=== PATIENT | female | born 1995 | race Caucasian/White ===

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

== ENCOUNTER 2017-01-09 20:12 | Emergency (ER) | payer MEDICAID ==
[2017-01-09] MEDS ORDERED: Rocephin 1000 MG INJ IM ONE (21:21)
[2017-01-09] MEDS ORDERED: CLEOCIN 150 MG CAPSULE PO ONE ×2 (21:21→21:47)
[2017-01-09] MEDS ORDERED: CLEOCIN 150 MG CAPSULE ONE (21:29)
[2017-01-09] MEDS ORDERED: XYLOCAINE 1% HCL 20 ML MDV ONE (21:30)
[2017-01-09] MEDS ORDERED: Rocephin 1000 MG INJ ONE (21:30)
--- NOTE | 2017-01-09 21:37 | ERPHSYRPT ---
- History of Present Illness Time Seen by Provider: 01/09/17 21:15 Source: patient Exam Limitations: no limitations Patient Subjective Stated Complaint: pt states she has a hx of mrsa and thinks she has mrsa on her buttocks. Triage Nursing Assessment: pt alert and oreinted, answers questions approp. pt ambulatory with steady gait noted. respirations nonlabored with lungs cta. red area noted to lt buttock with some warmth noted. Physician History: FOR THE PAST 2 DAYS PT HAS HAD AN ERYTHEMATOUS AREA ON HER LEFT BUTTOCK; DENIES FEVER, CHILLS, NAUSEA, VOMITING. Allergies/Adverse Reactions: Penicillins Allergy (Mild, Verified 01/09/17 21:30) MOTHER ET FATHER ARE BOTH ALLERGIC SO WILL NOT TRY WITH CHILD Home Medications: No Home Meds 1 ea UD 01/09/17 [History] Hx Tetanus, Diphtheria Vaccination/Date Given: Yes Hx Influenza Vaccination/Date Given: No Hx Pneumococcal Vaccination/Date Given: No Immunizations Up to Date: Yes - Review of Systems Constitutional: No Fever, No Chills Abdominal/Gastrointestinal: No Nausea, No Vomiting Skin: Other (LEFT BUTTOCK ERYTHEMA) All Other Systems: Reviewed and Negative - Past Medical History Pertinent Past Medical History: No Neurological History: No Pertinent History ENT History: No Pertinent History Cardiac History: No Pertinent History Respiratory History: No Pertinent History Endocrine Medical History: No Pertinent History Musculoskeletal History: No Pertinent History GI Medical History: No Pertinent History History: No Pertinent History Psycho-Social History: No Pertinent History Female Reproductive Disorders: No Pertinent History Other Medical History: MRSA. No hx of DM - Past Surgical History Past Surgical History: No Neuro Surgical History: No Pertinent History Cardiac: No Pertinent History Respiratory: No Pertinent History Gastrointestinal: No Pertinent History Genitourinary: No Pertinent History Musculoskeletal: No Pertinent History Female Surgical History: No Pertinent History Other Surgical History: Arm Fracture - Social History Smoking Status: Never smoker Exposure to second hand smoke: No Alcohol Use: None Drug Use: none Patient Lives Alone: No Significant Family History: no pertinent family hx - Female History Hx Last Menstrual Period: last month Hx Now: No - Nursing Vital Signs Nursing Vital Signs: Initial Vital Signs Temperature 97.8 F Temperature Source Oral Pulse Rate 76 Respiratory Rate 18 Blood Pressure [Right Arm] 134/86 Pain Intensity 2 - Physical Exam General Appearance: alert Eye Exam: PERRL/EOMI Ears, Nose, Throat Exam: pharynx normal, moist mucous membranes, TM abnormal (L ) (LEFT TM ERYTHEMATOUS) Neck Exam: normal inspection Respiratory Exam: lungs clear Cardiovascular Exam: normal heart sounds Gastrointestinal/Abdomen Exam: soft, normal bowel sounds Back Exam: normal range of motion Extremity Exam: normal inspection, No pedal edema Neurologic Exam: alert, cooperative Skin Exam: other (1.5 CM ERYTHEMATOUS MILDLY TENDER NODULE WITHOUT FLUCTUATION ON THE LATERAL ASPECT OF THE LEFT BUTTOCK.) SpO2 Interpretation: normal SpO2: 97 Oxygen Delivery: Room Air - Course Nursing assessment & vital signs reviewed: Yes Ordered Tests: Medication Summary Discontinued Medications Generic Name Dose Route Start Last Admin Trade Name Freq PRN Reason Stop Dose Admin Ceftriaxone Sodium 1,000 mg 01/09/17 21:21 01/09/17 21:31 Rocephin 1000 Mg Inj IM 01/09/17 21:22 1,000 mg STAT ONE Administration Ceftriaxone Sodium Confirm 01/09/17 21:30 Rocephin 1000 Mg Inj Administered 01/09/17 21:31 Dose 1,000 mg .ROUTE .STK-MED ONE Clindamycin HCl 300 mg 01/09/17 21:21 01/09/17 21:31 Cleocin 150 Mg Capsule PO 01/09/17 21:22 300 mg STAT ONE Administration Clindamycin HCl Confirm 01/09/17 21:29 Cleocin 150 Mg Capsule Administered 01/09/17 21:30 Dose 300 mg .ROUTE .STK-MED ONE Lidocaine HCl Confirm 01/09/17 21:30 Xylocaine 1% Hcl 20 Ml Mdv Administered 01/09/17 21:31 Dose 3 ml .ROUTE .STK-MED ONE - Departure Time of Disposition: 21:46 Departure Disposition: Home Clinical Impression: CELLULITIS OF LEFT BUTTOCK, LOM Condition: Fair Critical Care Time: No Instructions: Methicillin-Resistant Staph Infection (MRSA) Additional Instructions: FOLLOW UP WITH PRIVATE DOCTOR TOMORROW. Prescriptions: Naproxen [Naprosyn] 500 mg PO Q12H PRN PRN #20 tablet PRN Reason: Pain Clindamycin HCl 300 mg PO Q6H #40 capsule
[2017-01-09 22:22] VITALS: BP 118/60; PULSE 70; O2SAT 100
== END 2017-01-09 22:22 | disposition home or self-care (01) ==
LOC: ED 20:12
DX: L03.317 Cellulitis of buttock (principal); H66.92 Otitis media, unspecified, left ear
CPT/HCPCS: 96372; 99284; J0696; A9270-GY

== ENCOUNTER 2017-02-24 14:31 | Emergency (ER) | payer MEDICAID ==
[2017-02-24 14:36] VITALS: BP 122/66; PULSE 89; O2SAT 98
--- NOTE | 2017-02-24 15:25 | ERPHSYRPT ---
- History of Present Illness Time Seen by Provider: 02/24/17 15:18 Source: patient Exam Limitations: no limitations Patient Subjective Stated Complaint: PT REPORTS PAIN TO RIGHT FOOT FOR A FEW WEEKS-STATES THAT SHE HAS TWISTED HER FOOT A FEW TIMES-STATES THAT SHE HAS INTERMITTANTLY WORE A BRACE FOR SUPPORT-PAIN INCREASES AT TIMES-REPORTS AT THE BEGINNING OF NOVEMBER OR DECEMBER SHE ALSO FELL ON HER ANKLE Triage Nursing Assessment: PT PINK WARM ET [id number] EASY ET NONLABORED-NO OBVIOUS DEFORMITY TO EXTREMITY-EXTREMITY PINK WARM ET DRY-PULSES PRESENT Physician History: The patient is a 21-year-old female with her boyfriend complaining that she slipped on the wet grass while playing [employer] 2 weeks ago, twisting her right foot, causing pain. She wrapped it for several days until the pain went away. She unwrapped it and now it's painful again. She took 200 mg of ibuprofen yesterday without relief. Method of Injury: twisted Occurred: other (2 weeks) Quality: constant, aching Severity of Pain-Max: moderate Severity of Pain-Current: moderate Lower Extremities Pain: foot: right Modifying Factors: Improves With: rest Associated Symptoms: none Allergies/Adverse Reactions: Penicillins Allergy (Mild, Verified 02/24/17 14:40) MOTHER ET FATHER ARE BOTH ALLERGIC SO WILL NOT TRY WITH CHILD Home Medications: Cholecalciferol (Vitamin D3) [Vitamin D] 50,000 unit PO WEEKLY 02/24/17 [ History] Citalopram Hydrobromide [Celexa] 20 mg PO DAILY 02/24/17 [History] Famotidine 20 mg [Pepcid 20 MG] 20 mg PO DAILY 02/24/17 [History] Hx Tetanus, Diphtheria Vaccination/Date Given: Yes Hx Influenza Vaccination/Date Given: No Hx Pneumococcal Vaccination/Date Given: No Immunizations Up to Date: Yes - Review of Systems Constitutional: No Fever, No Chills Eyes: No Symptoms Ears, Nose, & Throat: No Symptoms Respiratory: No Cough, No Dyspnea Cardiac: No Chest Pain, No Edema, No Syncope Abdominal/Gastrointestinal: No Abdominal Pain, No Nausea, No Vomiting, No Diarrhea Genitourinary Symptoms: No Dysuria Musculoskeletal: Injury Skin: No Rash Neurological: No Dizziness, No Focal Weakness, No Sensory Changes Psychological: No Symptoms Endocrine: No Symptoms Hematologic/Lymphatic: No Symptoms Immunological/Allergic: No Symptoms All Other Systems: Reviewed and Negative - Past Medical History Pertinent Past Medical History: Yes Neurological History: No Pertinent History ENT History: No Pertinent History Cardiac History: No Pertinent History Respiratory History: No Pertinent History Endocrine Medical History: No Pertinent History Musculoskeletal History: No Pertinent History GI Medical History: No Pertinent History History: No Pertinent History Psycho-Social History: Anxiety Female Reproductive Disorders: No Pertinent History Other Medical History: MRSA. No hx of DM - Past Surgical History Past Surgical History: No Neuro Surgical History: No Pertinent History Cardiac: No Pertinent History Respiratory: No Pertinent History Gastrointestinal: No Pertinent History Genitourinary: No Pertinent History Musculoskeletal: No Pertinent History Female Surgical History: No Pertinent History Other Surgical History: Arm Fracture - Social History Smoking Status: Never smoker Exposure to second hand smoke: No Alcohol Use: None Drug Use: none Patient Lives Alone: No Significant Family History: no pertinent family hx - Female History Hx Last Menstrual Period: 3 WKS AGO Hx Now: No - Nursing Vital Signs Nursing Vital Signs: Initial Vital Signs Temperature 97.6 F Temperature Source Oral Pulse Rate 89 Respiratory Rate 18 Blood Pressure [Right Arm] 122/66 Pain Intensity 3 - Physical Exam General Appearance: alert Eyes, Ears, Nose, Throat Exam: moist mucous membranes Neck Exam: non-tender, supple Cardiovascular/Respiratory Exam: chest non-tender, normal breath sounds, regular rate/rhythm, no respiratory distress Gastrointestinal/Abdominal Exam: non-tender, guarding Back Exam: normal inspection, No vertebral tenderness Hips Exam: bilateral: non-tender, normal inspection Legs Exam: bilateral leg: non-tender, normal inspection Knees Exam: bilateral knee: non-tender, normal inspection Ankle Exam: bilateral ankle: non-tender, normal inspection Foot Exam: right foot: soft tissue tenderness, left foot: non-tender, normal inspection Neuro/Tendon Exam: normal sensation, normal motor functions Mental Status Exam: alert, oriented x 3, cooperative Skin Exam: normal color, warm, dry SpO2 Interpretation: normal SpO2: 98 Oxygen Delivery: Room Air - Radiology Exams Right Foot X-ray Interpretation: Interpreted by me, No Fracture (on single view there is a linear opacity at medial midfoot that may represent an avulsion fx) Ordered Tests: Active Orders 24 hr Category Date Time Status FOOT (MINIMUM 3 VIEWS) Stat Exams 02/24/17 14:42 Ordered - Progress Progress: unchanged Counseled pt/family regarding: rad results - Departure Time of Disposition: 15:28 Departure Disposition: Home Clinical Impression: Foot pain Condition: Stable Critical Care Time: No Additional Instructions: You have hurts her right foot. It is possible that you have a minor avulsion fracture on the medial part of the mid section of your foot. Keep the Caleb bandage on your foot as needed. Take naproxen 500 mg twice a day as needed. Follow-up in 4-5 days. Prescriptions: Naproxen 500 mg PO BID PRN #30 tablet.
--- NOTE | 2017-02-24 22:36 | XRAY ---
Indication: Lateral foot pain following fall. Comparison: None 3 nonweightbearing views of the right foot obtained. No bony, articular, or soft tissue abnormalities.
== END 2017-02-24 15:41 | disposition home or self-care (01) ==
LOC: ED 14:31
DX: M79.671 Pain in right foot (principal); W01.0XXA Fall on same level from slipping, tripping and stumbling without subsequent striking against object, initial encounter; Y93.69 Activity, other involving other sports and athletics played as a team or group
CPT/HCPCS: 73630; 99283

== ENCOUNTER 2017-03-27 13:12 | Emergency (ER) | payer MEDICAID ==
--- NOTE | 2017-03-27 13:55 | ERPHSYRPT ---
- History of Present Illness Time Seen by Provider: 03/27/17 13:45 Source: patient Exam Limitations: clinical condition Patient Subjective Stated Complaint: having pain on right side of mouth. states it hurts to talk. denies gum or tooth pain. Triage Nursing Assessment: a/o, skin w/d, color normal. no red or open areas noted in mouth Physician History: PATIENT AWAKENED WITH RIGHT JAW PAIN WITH SWELLING THIS AM. DENIES FEVER, DIFFICULTY SWALLOWING OR BREATHING. Severity: moderate Prearrival Treatment: no prearrival treatment Modifying Factors: Improves With: activity Associated Symptoms: denies symptoms Allergies/Adverse Reactions: Penicillins Allergy (Mild, Verified 03/27/17 13:30) MOTHER ET FATHER ARE BOTH ALLERGIC SO WILL NOT TRY WITH CHILD Home Medications: Cholecalciferol (Vitamin D3) [Vitamin D] 50,000 unit PO WEEKLY 02/24/17 [ History] Citalopram Hydrobromide [Celexa] 20 mg PO DAILY 02/24/17 [History] Famotidine 20 mg [Pepcid 20 MG] 20 mg PO DAILY 02/24/17 [History] Hx Tetanus, Diphtheria Vaccination/Date Given: No Hx Influenza Vaccination/Date Given: Yes Hx Pneumococcal Vaccination/Date Given: No - Review of Systems Constitutional: No Fever, No Chills Eyes: No Symptoms Ears, Nose, & Throat: Mouth Pain, Mouth Swelling Respiratory: No Symptoms, No Cough, No Dyspnea Cardiac: No Symptoms, No Chest Pain, No Edema, No Syncope Abdominal/Gastrointestinal: No Abdominal Pain, No Nausea, No Vomiting, No Diarrhea Genitourinary Symptoms: No Symptoms, No Dysuria Musculoskeletal: No Back Pain, No Neck Pain Skin: No Rash Neurological: No Symptoms, No Dizziness, No Focal Weakness, No Sensory Changes Psychological: No Symptoms Endocrine: No Symptoms All Other Systems: Reviewed and Negative - Past Medical History Pertinent Past Medical History: Yes Neurological History: No Pertinent History ENT History: No Pertinent History Cardiac History: No Pertinent History Respiratory History: No Pertinent History Endocrine Medical History: No Pertinent History Musculoskeletal History: No Pertinent History GI Medical History: No Pertinent History History: No Pertinent History Psycho-Social History: Anxiety Female Reproductive Disorders: No Pertinent History Other Medical History: MRSA. No hx of DM - Past Surgical History Past Surgical History: No Neuro Surgical History: No Pertinent History Cardiac: No Pertinent History Respiratory: No Pertinent History Gastrointestinal: No Pertinent History Genitourinary: No Pertinent History Musculoskeletal: No Pertinent History Female Surgical History: No Pertinent History Other Surgical History: Arm Fracture - Social History Smoking Status: Never smoker Exposure to second hand smoke: No Alcohol Use: None Drug Use: none Patient Lives Alone: No Significant Family History: no pertinent family hx - Female History Hx Last Menstrual Period: 03/20/17 Hx Now: No - Nursing Vital Signs Nursing Vital Signs: Initial Vital Signs Temperature 97.6 F Temperature Source Oral Pulse Rate 94 Respiratory Rate 16 Blood Pressure [Right Arm] 143/69 Pain Intensity 7 - Physical Exam General Appearance: no apparent distress, alert Eye Exam: bilateral eye: PERRL, EOMI Ear Exam: bilateral ear: auricle normal, canal normal, TM normal Nasal Exam: normal inspection Throat Exam: pharynx normal, dental tenderness (SWELLING RIGHT MID MANDIBLE NO GINGIVAL SWELLING, NO CARIES VISUALIZED), moist mucus membranes, No tonsillar exudate Neck Exam: supple Cardiovascular/Respiratory Exam: normal breath sounds, regular rate/rhythm Neurologic Exam: No motor deficits SpO2 Interpretation: normal SpO2: 99 Oxygen Delivery: Room Air - Progress Counseled pt/family regarding: diagnosis, need for follow-up - Departure Time of Disposition: 14:00 Departure Disposition: Home (1400) Clinical Impression: DENTALGIA Condition: Stable Critical Care Time: No Additional Instructions: ANTIBIOTIC CLINDAMYCIN 300MG EVERY 8 HOURS FOR 10 DAYS. TYLENOL # 3 EVERY 4 HOURS FOR PAIN NEEDED. CALL YOUR DENTIST FOR FOLLOWUP APPOINTMENT. Prescriptions: Codeine Phosphate/APAP #3 [Tylenol #3 Tablet] 1 tab PO Q4H PRN PRN #15 tablet PRN Reason: Pain Clindamycin HCl 300 mg PO TID #30 capsule
[2017-03-27 14:07] VITALS: BP 140/84; PULSE 70; O2SAT 98
== END 2017-03-27 14:08 | disposition home or self-care (01) ==
LOC: ED 13:12
DX: K08.89 Other specified disorders of teeth and supporting structures (principal)
CPT/HCPCS: 99281; 99283

== ENCOUNTER 2017-10-03 16:20 | Emergency (ER) | payer MEDICAID ==
[2017-10-03] MEDS ORDERED: PROTONIX 40 MG IV IV ONE ×2 (16:54→17:42)
[2017-10-03] MEDS ORDERED: GI COCKTAIL 45 ML (Maalox/Lidocaine) PO ONE (16:54)
[2017-10-03] MEDS ORDERED: Zofran 4 MG/2 ML VIAL IV ONE (16:54)
[2017-10-03] MEDS ORDERED: Sodium Chloride 0.9% 1000 ML 1,000 ML IV STA (16:54)
--- NOTE | 2017-10-03 17:04 | ERPHSYRPT ---
- History of Present Illness Time Seen by Provider: 10/03/17 16:50 Historian: patient Exam Limitations: clinical condition Patient Subjective Stated Complaint: here for epigastric pain since last night with n/v , able to keep food down today, no fever, headache Triage Nursing Assessment: pt walked in, alert,resp easy, skin w/d pink.and soft , nontender Physician History: PATIENT COMPLAINS OF EPIGASTRIC PAIN SINCE LAST NIGHT, PAIN RADIATES TO BACK, ASSOCIATED WITH EMESIS X 2, DENIES FEVER, DIARRHEA, CHILLS, FLANK PAIN OR URINARY SYMPTOMS. Timing/Duration: yesterday Activities at Onset: none Quality: cramping Abdominal Pain Onset Location: RUQ, epigastric Pain Radiation: back Severity of Pain-Max: moderate Severity of Pain-Current: moderate Modifying Factors: Improves With: eating Associated Symptoms: nausea, vomiting Previous symptoms: no prior history Allergies/Adverse Reactions: Penicillins Allergy (Mild, Verified 03/27/17 13:30) MOTHER ET FATHER ARE BOTH ALLERGIC SO WILL NOT TRY WITH CHILD Hx Tetanus, Diphtheria Vaccination/Date Given: Yes Hx Influenza Vaccination/Date Given: Yes Hx Pneumococcal Vaccination/Date Given: No Immunizations Up to Date: Yes - Review of Systems Constitutional: No Fever, No Chills Eyes: No Symptoms Ears, Nose, & Throat: No Symptoms Respiratory: No Symptoms, No Cough, No Dyspnea Cardiac: No Symptoms, No Chest Pain, No Edema, No Syncope Abdominal/Gastrointestinal: Abdominal Pain, Nausea, Vomiting, No Diarrhea Genitourinary Symptoms: No Symptoms, No Dysuria Musculoskeletal: No Symptoms, No Back Pain, No Neck Pain Skin: No Rash Neurological: No Symptoms, No Dizziness, No Focal Weakness, No Sensory Changes Psychological: No Symptoms Endocrine: No Symptoms All Other Systems: Reviewed and Negative - Past Medical History Pertinent Past Medical History: Yes Neurological History: No Pertinent History ENT History: No Pertinent History Cardiac History: No Pertinent History Respiratory History: No Pertinent History Endocrine Medical History: No Pertinent History Musculoskeletal History: No Pertinent History GI Medical History: No Pertinent History History: No Pertinent History Psycho-Social History: Anxiety Female Reproductive Disorders: No Pertinent History Other Medical History: MRSA. No hx of DM - Past Surgical History Past Surgical History: No Neuro Surgical History: No Pertinent History Cardiac: No Pertinent History Respiratory: No Pertinent History Gastrointestinal: No Pertinent History Genitourinary: No Pertinent History Musculoskeletal: No Pertinent History Female Surgical History: No Pertinent History Other Surgical History: Arm Fracture - Social History Smoking Status: Never smoker Exposure to second hand smoke: No Alcohol Use: None Drug Use: none Patient Lives Alone: No Significant Family History: no pertinent family hx - Female History Hx Last Menstrual Period: now Hx Now: No - Nursing Vital Signs Nursing Vital Signs: Initial Vital Signs Temperature 97.6 F 10/03/17 16:37 Pulse Rate 100 H 10/03/17 16:37 Respiratory Rate 16 10/03/17 16:37 Blood Pressure 150/85 10/03/17 16:37 O2 Sat by Pulse Oximetry 95 10/03/17 16:37 Pain Scale Pain Intensity 0 - Physical Exam General Appearance: no apparent distress, alert Eye Exam: PERRL/EOMI, eyes nml inspection Ears, Nose, Throat Exam: normal ENT inspection, pharynx normal, moist mucous membranes Neck Exam: normal inspection, non-tender, supple, full range of motion Respiratory Exam: normal breath sounds, lungs clear, No respiratory distress Cardiovascular Exam: regular rate/rhythm, normal heart sounds Gastrointestinal/Abdomen Exam: soft, normal bowel sounds, tenderness ( EPIGASTRIC AND RIGHT UPPER QUADRANT TENDERNESS), No mass Back Exam: normal inspection, normal range of motion, No CVA tenderness, No vertebral tenderness Extremity Exam: normal inspection, normal range of motion, pelvis stable Neurologic Exam: alert, oriented x 3, cooperative, normal mood/affect, nml cerebellar function, sensation nml, No motor deficits Skin Exam: normal color, warm, dry SpO2 Interpretation: normal SpO2: 95 Oxygen Delivery: Room Air - CT Exams Abdomen/Pelvis CT Interpretation: Discussed w/radiologist (NORMAL APPENIDX, THERE IS A LEFT OVARIAN CYST 4.2 CM) Ordered Tests: Active Orders 24 hr Category Date Time Status IV Insertion STAT Care 10/03/17 16:54 Active ABDOMEN AND PELVIS W CONTRAST [CT] Stat Exams 10/03/17 16:49 Taken AMYLASE Stat Lab 10/03/17 17:37 Completed CBC W DIFF Stat Lab 10/03/17 17:37 Completed CMP Stat Lab 10/03/17 17:37 Completed HCG,QUALITATIVE URINE Stat Lab 10/03/17 17:15 Completed LIPASE Stat Lab 10/03/17 17:37 Completed Medication Summary Discontinued Medications Generic Name Dose Route Start Last Admin Trade Name Freq PRN Reason Stop Dose Admin Al Hydrox/Mg Hydrox/Simethicone Confirm 10/03/17 17:39 Maalox Es 30 Ml Unit Dose Administered 10/03/17 17:40 Dose 30 ml .ROUTE .STK-MED ONE Sodium Chloride 1,000 mls @ 999 mls/hr 10/03/17 16:54 10/03/17 17:41 Sodium Chloride 0.9% 1000 Ml IV 10/03/17 17:54 999 mls/hr .Q1H1M STA Administration Sodium Chloride Confirm 10/03/17 17:39 Sodium Chloride 0.9% 1000 Ml Administered 10/03/17 17:40 Dose 1,000 mls @ ud .ROUTE .STK-MED ONE Lidocaine HCl Confirm 10/03/17 17:39 Xylocaine Hcl Viscous * Administered 10/03/17 17:40 Dose 15 ml .ROUTE .STK-MED ONE Magnesium Hydroxide 45 ml 10/03/17 16:54 10/03/17 17:41 Gi Cocktail 45 Ml (Maalox/Lidocaine) PO 10/03/17 16:55 45 ml STAT ONE Administration Ondansetron HCl 4 mg 10/03/17 16:54 10/03/17 17:41 Zofran 4 Mg/2 Ml Vial IV 10/03/17 16:55 4 mg STAT ONE Administration Ondansetron HCl Confirm 10/03/17 17:38 Zofran 4 Mg/2 Ml Vial Administered 10/03/17 17:39 Dose 4 mg .ROUTE .STK-MED ONE Pantoprazole Sodium 40 mg 10/03/17 16:54 10/03/17 17:42 Protonix 40 Mg Iv IV 10/03/17 16:55 40 mg STAT ONE Administration Pantoprazole Sodium Confirm 10/03/17 17:42 Protonix 40 Mg Iv Administered 10/03/17 17:43 Dose 40 mg IV .STK-MED ONE Lab/Rad Data: Laboratory Result Diagrams 10/03/17 17:37 10/03/17 17:37 Laboratory Results 10/03/17 10/03/17 10/03/17 Range/Units 17:37 17:37 17:15 WBC 9.9 (4.0-10.5) K/mm3 RBC 5.02 (4.1-5.4) M/mm3 Hgb 13.3 (12.0-16.0) gm/dl Hct 40.0 (35-47) % MCV 79.7 (78-100) fl MCH 26.5 (26-32) pg MCHC 33.3 (32-36) g/dl RDW 14.3 H (11.5-14.0) % Plt Count 303 (150-450) K/mm3 MPV 9.5 (6-9.5) fl Gran % 56.5 (36.0-66.0) % Lymphocytes % 25.9 (24.0-44.0) % Monocytes % 10.9 (0.0-12.0) % Eosinophils % 5.9 H (0.00-5.0) % Basophils % 0.8 (0.0-0.4) % Basophils # 0.08 (0-0.4) Sodium 139 (136-145) mEq/L Potassium 3.8 (3.5-5.1) mEq/L Chloride 107 (98-107) mEq/L Carbon Dioxide 22.9 (21-32) mEq/L Anion Gap 13.2 (5-15) MEQ/L BUN 11 (9-20) mg/dL Creatinine 1.01 (0.55-1.30) mg/dl Estimated GFR > 60 ML/MIN Glucose 86 (70-110) MG/DL Calcium 8.9 (8.5-10.1) mg/dL Total Bilirubin 0.30 (0.2-1.0) mg/dL AST 16 (15-37) U/L ALT 22 (12-78) U/L Alkaline Phosphatase 63 (46-116) U/L Serum Total Protein 7.5 (6.4-8.2) gm/dL Albumin 3.6 (3.4-5.0) g/dL Amylase 70 (25-115) U/L Lipase 125 (73-393) U/L Urine HCG, Qual NEGATIVE (Negative) - Progress Progress: improved Progress Note: 10/03/17 17:02 ADMINISTERED IV NORMAL SALINE 1000 ML /HR, GI COCKTAIL ORALLY, ZOFRAN 4MG, PROTONIX 40MG IV, COMPLETE PAIN RELIEF AFTER GI COCKTAIL 10/03/17 19:37 Counseled pt/family regarding: lab results, diagnosis, need for follow-up, rad results - Departure Time of Disposition: 19:45 Departure Disposition: Home Clinical Impression: ACUTE GASTRITIS, LEFT OVARIAN CYST Condition: Stable Critical Care Time: No Additional Instructions: BEGIN PREVACID 30MG DAILY FOR 4 WEEKS. TAKE EITHER 2 TABLESPOONS OF MYLANTA OR MAALOX AFTER MEALS AND AT BEDTIME. CONSULT YOUR PRIMARY CARE PROVIDER AND BRAILLE AND TALKING BOOKS CLERK FOR FOLLOWUP. Prescriptions: Lansoprazole [Prevacid] 30 mg PO DAILY #30 capsule.
[2017-10-03] MEDS ORDERED: Zofran 4 MG/2 ML VIAL ONE (17:38)
[2017-10-03] MEDS ORDERED: MAALOX ES 30 ML UNIT DOSE ONE (17:39)
[2017-10-03] MEDS ORDERED: Sodium Chloride 0.9% 1000 ML 1,000 ML ONE (17:39)
[2017-10-03] MEDS ORDERED: XYLOCAINE HCl Viscous ONE (17:39)
[2017-10-03 17:40] LABS: BASOPHIL % 0.8 % (0.0-0.4); Basophil (Absolute #) 0.08 (0-0.4); Eosinophil % 5.9 % (0.00-5.0); Eosinophil (Absolute #) 0.59 (0-0.5); Granulocytes % 56.5 % (36.0-66.0); Hemoglobin 13.3 gm/dl (12.0-16.0); Lymphocyte (Absolute #) 2.57 (1.0-4.6); Lymphocytes % 25.9 % (24.0-44.0); Mean Cell Volume 79.7 fl (78-100); Mean Corpuscular Hemoglobin 26.5 pg (26-32); Mean Corpuscular Hgb Concent. 33.3 g/dl (32-36); Mean Platelet Volume 9.5 fl (6-9.5); Monocyte (Absolute #) 1.08 (0.0-1.3); Monocytes % 10.9 % (0.0-12.0); Platelet Count 303 K/mm3 (150-450); Red Blood Count 5.02 M/mm3 (4.1-5.4); Red Cell Distribution Width 14.3 % (11.5-14.0); White Blood Count 9.9 K/mm3 (4.0-10.5)
[2017-10-03 17:59] VITALS: BP 120/70
[2017-10-03 18:02] LABS: ALBUMIN 3.6 g/dL (3.4-5.0); ALKALINE PHOSPHATASE 63 U/L (46-116); AMYLASE 70 U/L (25-115); ANION GAP 13.2 MEQ/L (5-15); BLOOD UREA NITROGEN 11 mg/dL (9-20); CHLORIDE 107 mEq/L (98-107); Calcium 8.9 mg/dL (8.5-10.1); Carbon Dioxide 22.9 mEq/L (21-32); Creatinine 1 1.01 mg/dl (0.55-1.30); EST GLOMERULAR FILTRATION RATE > 60 ML/MIN; Glucose 86 MG/DL (70-110); LIPASE 125 U/L (73-393); Potassium 3.8 mEq/L (3.5-5.1); SGOT/AST 16 U/L (15-37); SGPT/ALT 22 U/L (12-78); SODIUM 139 mEq/L (136-145); Total Protein 7.5 gm/dL (6.4-8.2)
[2017-10-03 19:13] VITALS: PULSE 81
[2017-10-03 19:42] VITALS: O2SAT 95
--- NOTE | 2017-10-04 09:00 | XRAY ---
Indication: Abdominal pain. Multiple contiguous axial images obtained through the abdomen and pelvis using 80 cc Isovue 370 contrast only. Comparison: None Lung bases are clear. Heart is not enlarged. Noncontrasted stomach and bowel loops appear nonobstructed. Mild diffuse scattered colonic fecal debris throughout. Normal appendix. 4.2 cm left ovary cyst. No free fluid/air. There are scattered small subcentimeter mesenteric nodes favoring adenitis. No pathologic retroperitoneal lymphadenopathy. Remaining liver, gallbladder, pancreas, spleen, adrenal glands, kidneys, ureters, bladder, uterus, and aorta appear normal in CT appearance and attenuation. Osseous structures intact. Impression: 1. 4.2 cm left ovary cyst. Pelvic sonogram may yield further information if clinically warranted. 2. Scattered small mesenteric nodes favoring mesenteric adenitis. 3. Mild fecal stasis without obstruction. CT DI 22.11
== END 2017-10-03 19:51 | disposition home or self-care (01) ==
LOC: ED 16:20
DX: K29.70 Gastritis, unspecified, without bleeding (principal); N83.202 Unspecified ovarian cyst, left side
CPT/HCPCS: 36000; 36415; 74177; 80053; 82150; 83690; 84703; 85025; 96360; 96374; 96375; 99284; J2405; A9270-GY

== ENCOUNTER 2017-11-26 00:16 | Emergency (ER) | payer MEDICAID ==
[2017-11-26 01:13] VITALS: BP 117/78; O2SAT 99
--- NOTE | 2017-11-26 01:21 | ERPHSYRPT ---
- History of Present Illness Time Seen by Provider: 11/26/17 01:17 Source: patient Exam Limitations: no limitations Patient Subjective Stated Complaint: recent fall on stairs, right foot pain Triage Nursing Assessment: c/o right foot pain, no deformities or tenderness noted. Physician History: 22 y/o female comes to the ER after falling down the steps on and hurting her right foot. Pt had a fracture of the same foot a year ago. Pt describes the pain as sharp, constant, 6/10 and not relieved by motrin. Pt is able to ambulate with minimal difficulty. Method of Injury: fell Occurred: days ago Quality: constant Severity of Pain-Max: moderate Severity of Pain-Current: moderate Lower Extremities Pain: foot: right Modifying Factors: Improves With: nothing Associated Symptoms: none Allergies/Adverse Reactions: Penicillins Allergy (Mild, Verified 03/27/17 13:30) MOTHER ET FATHER ARE BOTH ALLERGIC SO WILL NOT TRY WITH CHILD Hx Tetanus, Diphtheria Vaccination/Date Given: Yes Hx Influenza Vaccination/Date Given: Yes Hx Pneumococcal Vaccination/Date Given: No Immunizations Up to Date: Yes - Review of Systems Constitutional: No Fever, No Chills Eyes: No Symptoms Ears, Nose, & Throat: No Symptoms Respiratory: No Cough, No Dyspnea Cardiac: No Chest Pain, No Edema, No Syncope Abdominal/Gastrointestinal: No Abdominal Pain, No Nausea, No Vomiting, No Diarrhea Genitourinary Symptoms: No Dysuria Musculoskeletal: Joint Pain, No Back Pain, No Neck Pain Skin: No Rash Neurological: No Dizziness, No Focal Weakness, No Sensory Changes Psychological: No Symptoms Endocrine: No Symptoms All Other Systems: Reviewed and Negative - Past Medical History Pertinent Past Medical History: Yes Neurological History: No Pertinent History ENT History: No Pertinent History Cardiac History: No Pertinent History Respiratory History: No Pertinent History Endocrine Medical History: No Pertinent History Musculoskeletal History: No Pertinent History GI Medical History: No Pertinent History History: No Pertinent History Psycho-Social History: Anxiety Female Reproductive Disorders: No Pertinent History Other Medical History: MRSA. No hx of DM - Past Surgical History Past Surgical History: No Neuro Surgical History: No Pertinent History Cardiac: No Pertinent History Respiratory: No Pertinent History Gastrointestinal: No Pertinent History Genitourinary: No Pertinent History Musculoskeletal: No Pertinent History Female Surgical History: No Pertinent History Other Surgical History: Arm Fracture - Social History Smoking Status: Never smoker Exposure to second hand smoke: No Alcohol Use: None Drug Use: none Patient Lives Alone: No Significant Family History: no pertinent family hx - Female History Hx Last Menstrual Period: 11/24/2017 Hx Now: No - Nursing Vital Signs Nursing Vital Signs: Initial Vital Signs Temperature 98.8 F 11/26/17 00:57 Pulse Rate 80 11/26/17 00:57 Respiratory Rate 20 11/26/17 00:57 Blood Pressure 132/80 11/26/17 00:57 O2 Sat by Pulse Oximetry 100 11/26/17 00:57 Pain Scale Pain Intensity 6 - Physical Exam General Appearance: alert Eyes, Ears, Nose, Throat Exam: moist mucous membranes Neck Exam: non-tender, supple Cardiovascular/Respiratory Exam: chest non-tender, normal breath sounds, regular rate/rhythm, no respiratory distress Gastrointestinal/Abdominal Exam: non-tender, guarding Back Exam: normal inspection, No vertebral tenderness Legs Exam: bilateral leg: non-tender, normal inspection, normal range of motion , no evidence of injury Knees Exam: bilateral knee: non-tender, normal inspection, normal range of motion, no evidence of injury Ankle Exam: bilateral ankle: non-tender, normal inspection, normal range of motion, no evidence of injury Foot Exam: right foot: pain, soft tissue tenderness, swelling Neuro/Tendon Exam: normal sensation, normal motor functions Mental Status Exam: alert, oriented x 3, cooperative Skin Exam: normal color, warm, dry SpO2: 99 Oxygen Delivery: Room Air - Course Nursing assessment & vital signs reviewed: Yes Ordered Tests: Active Orders 24 hr Category Date Time Status FOOT (MINIMUM 3 VIEWS) Stat Exams 11/26/17 Ordered Medication Summary Discontinued Medications Generic Name Dose Route Start Last Admin Trade Name Michael PRN Reason Stop Dose Admin Ketorolac Tromethamine 60 mg 11/26/17 01:22 11/26/17 01:30 Toradol 30 Mg Injection IM 11/26/17 01:23 60 mg STAT ONE Administration Ketorolac Tromethamine Confirm 11/26/17 01:26 Toradol 30 Mg Injection Administered 11/26/17 01:27 Dose 60 mg .ROUTE .STK-MED ONE - Progress Progress: improved Progress Note: 11/26/17 01:42 The foot x ray does not show any fracture or dislocation. The patient will be d/ c home on toradol. - Departure Time of Disposition: 01:43 Departure Disposition: Home Clinical Impression: Foot sprain Qualifiers: Encounter type: initial encounter Laterality: right Qualified Code(s): S93.601A - Unspecified sprain of right foot, initial encounter Condition: Stable Critical Care Time: No Referrals: SURI CASTAÑEDA [Primary Care Provider] - Instructions: Foot Sprain (DC) Additional Instructions: Follow up with your primary care doctor for any additional recommendations. Prescriptions: Ketorolac Tromethamine [Toradol] 10 mg PO QID PRN #20 tablet PRN Reason: Pain
[2017-11-26] MEDS ORDERED: TORAdol 30 mg Injection IM ONE (01:22)
[2017-11-26] MEDS ORDERED: TORAdol 30 mg Injection ONE (01:26)
[2017-11-26 01:52] VITALS: PULSE 80
--- NOTE | 2017-11-26 08:38 | XRAY ---
Indication: Pain following fall 3 days ago. Comparison: February 24, 2017. 3 nonweightbearing views of the right foot again demonstrates normal bones, articulation, and soft tissues.
== END 2017-11-26 01:57 | disposition home or self-care (01) ==
LOC: ED 00:16
DX: S93.601A Unspecified sprain of right foot, initial encounter (principal); F41.9 Anxiety disorder, unspecified; Z86.14 Personal history of Methicillin resistant Staphylococcus aureus infection; W10.8XXA Fall (on) (from) other stairs and steps, initial encounter; Y99.9 Unspecified external cause status
CPT/HCPCS: 73630; 99282; 99284; J1885

== ENCOUNTER 2018-03-24 20:16 | Emergency (ER) | payer MEDICAID ==
[2018-03-24 20:30] VITALS: BP 135/88; PULSE 85; O2SAT 98
[2018-03-24] MEDS ORDERED: Zofran 4 MG/2 ML VIAL IV ONE (20:34)
[2018-03-24] MEDS ORDERED: TORAdol 30 mg Injection IV ONE (20:34)
[2018-03-24] MEDS ORDERED: Pepcid 20 MG VIAL IV ONE ×2 (20:34→20:43)
[2018-03-24] MEDS ORDERED: Sodium Chloride 0.9% 1000 ML 1,000 ML IV STA (20:34)
[2018-03-24] MEDS ORDERED: TORAdol 30 mg Injection ONE (20:43)
[2018-03-24] MEDS ORDERED: Sodium Chloride 0.9% 1000 ML 1,000 ML ONE (20:43)
[2018-03-24] MEDS ORDERED: Zofran 4 MG/2 ML VIAL ONE (20:43)
--- NOTE | 2018-03-24 20:43 | ERPHSYRPT ---
- History of Present Illness Time Seen by Provider: 03/24/18 20:30 Historian: patient Exam Limitations: no limitations Patient Subjective Stated Complaint: Pt arrives to ER with c/o vomiting for past 4 days and headache for past 8 days. Mother instructed pt to come into ER for fluids. States has 99F temp yesterday. Denies abdominal pain, cramping, diarrhea, painful urination or any other sx. Triage Nursing Assessment: see above Physician History: Pt started vomiting 4 days ago, denies abdominal pain, chest pain, cough, SOB, urinary symptoms or fever, chills. She has been c/o left temporal headaches x 8 days, she states, she has frequent headaches, but not this long lasting. She states, she vomited blood yesterday, she vomited x2 today, but denies vomiting blood today, no diarrhea, bloody or black stools, she has been on her "period for 3 weeks, denies being . Timing/Duration: day(s) (4) Activities at Onset: none Quality: other (denies) Abdominal Pain Onset Location: other (denies) Pain Radiation: no radiation Severity of Pain-Max: none Severity of Pain-Current: none Modifying Factors: Improves With: nothing Associated Symptoms: nausea, vomiting Previous symptoms: same symptoms as today, other (History of left ovarian cysts) Allergies/Adverse Reactions: Penicillins Allergy (Mild, Verified 03/24/18 20:32) MOTHER ET FATHER ARE BOTH ALLERGIC SO WILL NOT TRY WITH CHILD Hx Tetanus, Diphtheria Vaccination/Date Given: Yes Hx Influenza Vaccination/Date Given: Yes Hx Pneumococcal Vaccination/Date Given: No - Review of Systems Constitutional: No Symptoms Respiratory: No Symptoms Cardiac: No Symptoms Abdominal/Gastrointestinal: Nausea, Vomiting, Hematemesis Genitourinary Symptoms: Vaginal Bleeding All Other Systems: Reviewed and Negative - Past Medical History Pertinent Past Medical History: Yes Neurological History: No Pertinent History ENT History: No Pertinent History Cardiac History: No Pertinent History Respiratory History: No Pertinent History Endocrine Medical History: No Pertinent History Musculoskeletal History: No Pertinent History GI Medical History: No Pertinent History History: No Pertinent History Psycho-Social History: Anxiety Female Reproductive Disorders: No Pertinent History Other Medical History: MRSA. No hx of DM - Past Surgical History Past Surgical History: Yes Neuro Surgical History: No Pertinent History Cardiac: No Pertinent History Respiratory: No Pertinent History Gastrointestinal: No Pertinent History Genitourinary: No Pertinent History Musculoskeletal: No Pertinent History Female Surgical History: No Pertinent History Other Surgical History: Arm Fracture, right foot fracture - Social History Smoking Status: Never smoker Exposure to second hand smoke: No Alcohol Use: None Drug Use: none Patient Lives Alone: No Significant Family History: no pertinent family hx - Female History Hx Now: No - Nursing Vital Signs Nursing Vital Signs: Initial Vital Signs Temperature 98.3 F 03/24/18 20:20 Pulse Rate 85 03/24/18 20:20 Respiratory Rate 18 03/24/18 20:20 Blood Pressure 135/88 03/24/18 20:20 O2 Sat by Pulse Oximetry 98 03/24/18 20:20 Pain Scale Pain Intensity 4 - Physical Exam General Appearance: no apparent distress Eye Exam: eyes nml inspection Ears, Nose, Throat Exam: normal ENT inspection, moist mucous membranes Neck Exam: normal inspection, non-tender, supple, No JVD, No lymphadenopathy Respiratory Exam: normal breath sounds, lungs clear, airway intact, No respiratory distress Cardiovascular Exam: regular rate/rhythm, normal heart sounds, normal peripheral pulses, No murmur Gastrointestinal/Abdomen Exam: soft, normal bowel sounds, tenderness (LLQ, mild) , No distention, No mass, No guarding, No rebound, No hernia, No organomegaly Back Exam: normal inspection, No CVA tenderness Extremity Exam: normal inspection Neurologic Exam: alert, oriented x 3, cooperative, normal mood/affect Skin Exam: normal color, warm, dry, No rash Lymphatic Exam: No adenopathy SpO2 Interpretation: normal SpO2: 98 Oxygen Delivery: Room Air - CT Exams Abdomen/Pelvis CT Interpretation: Negative, Tele-radiologist Report Head CT Interpretation: Negative, Tele-radiologist Report Ordered Tests: Active Orders 24 hr Category Date Time Status IV Insertion STAT Care 03/24/18 20:34 Active NPO (ED) STAT Care 03/24/18 20:34 Active ABDOMEN AND PELVIS W CONTRAST [CT] Stat Exams 03/24/18 20:34 Taken HEAD WITHOUT CONTRAST [CT] Stat Exams 03/24/18 22:29 Taken CBC W DIFF Stat Lab 03/24/18 21:00 Completed CMP Stat Lab 03/24/18 21:00 Completed CULTURE,URINE Stat Lab 03/24/18 20:40 Received HCG,QUALITATIVE URINE Stat Lab 03/24/18 20:40 Completed LIPASE Stat Lab 03/24/18 21:00 Completed PROTIME WITH INR Stat Lab 03/24/18 20:34 Completed UA W/ MICROSCOPIC Stat Lab 03/24/18 20:40 Completed Medication Summary Discontinued Medications Generic Name Dose Route Start Last Admin Trade Name Larryq PRN Reason Stop Dose Admin Diphenhydramine HCl 25 mg 03/24/18 22:36 03/24/18 22:46 Benadryl 50 Mg/Ml IV 03/24/18 22:37 25 mg STAT ONE Administration Diphenhydramine HCl Confirm 03/24/18 22:41 Benadryl 50 Mg/Ml Administered 03/24/18 22:42 Dose 50 mg .ROUTE .STK-MED ONE Famotidine 20 mg 03/24/18 20:34 03/24/18 20:50 Pepcid 20 Mg Vial IV 03/24/18 20:35 20 mg STAT ONE Administration Famotidine Confirm 03/24/18 20:43 Pepcid 20 Mg Vial Administered 03/24/18 20:44 Dose 20 mg IV .STK-MED ONE Sodium Chloride 1,000 mls @ 999 mls/hr 03/24/18 20:34 03/24/18 22:15 Sodium Chloride 0.9% 1000 Ml IV 03/24/18 21:34 Infused .Q1H1M STA Infusion Sodium Chloride Confirm 03/24/18 20:43 Sodium Chloride 0.9% 1000 Ml Administered 03/24/18 20:44 Dose 1,000 mls @ ud .ROUTE .STK-MED ONE Ketorolac Tromethamine 30 mg 03/24/18 20:34 03/24/18 20:51 Toradol 30 Mg Injection IV 03/24/18 20:35 30 mg STAT ONE Administration Ketorolac Tromethamine Confirm 03/24/18 20:43 Toradol 30 Mg Injection Administered 03/24/18 20:44 Dose 30 mg .ROUTE .STK-MED ONE Ondansetron HCl 4 mg 03/24/18 20:34 03/24/18 20:51 Zofran 4 Mg/2 Ml Vial IV 03/24/18 20:35 4 mg STAT ONE Administration Ondansetron HCl Confirm 03/24/18 20:43 Zofran 4 Mg/2 Ml Vial Administered 03/24/18 20:44 Dose 4 mg .ROUTE .STK-MED ONE Lab/Rad Data: Laboratory Result Diagrams 03/24/18 21:00 03/24/18 21:00 Laboratory Results 03/24/18 03/24/18 03/24/18 Range/Units 21:00 21:00 20:40 WBC 8.4 (4.0-10.5) K/mm3 RBC 4.79 (4.1-5.4) M/mm3 Hgb 12.6 (12.0-16.0) gm/dl Hct 37.2 (35-47) % MCV 77.7 L (78-100) fl MCH 26.3 (26-32) pg MCHC 33.9 (32-36) g/dl RDW 14.4 H (11.5-14.0) % Plt Count 323 (150-450) K/mm3 MPV 9.5 (6-9.5) fl Gran % 49.5 (36.0-66.0) % Eos # (Auto) 0.61 H (0-0.5) Absolute Lymphs (auto) 2.86 (1.0-4.6) Absolute Monos (auto) 0.72 (0.0-1.3) Lymphocytes % 33.9 (24.0-44.0) % Monocytes % 8.5 (0.0-12.0) % Eosinophils % 7.2 H (0.00-5.0) % Basophils % 0.9 (0.0-0.4) % Absolute Granulocytes 4.16 (1.4-6.9) Basophils # 0.08 (0-0.4) PT (9.95-12.35) SECONDS INR (0.8-3.0) Sodium 141 (137-145) mmol/L Potassium 3.7 (3.5-5.1) mmol/L Chloride 107 (98-107) mmol/L Carbon Dioxide 23 (22-30) mmol/L Anion Gap 14.7 (5-15) MEQ/L BUN 12 (7-17) mg/dL Creatinine 0.88 (0.52-1.04) mg/dL Estimated GFR > 60.0 ML/MIN Glucose 115 H (74-106) mg/dL Calcium 9.3 (8.4-10.2) mg/dL Total Bilirubin 0.20 (0.2-1.3) mg/dL AST 20 (14-36) U/L ALT 21 (0-35) U/L Alkaline Phosphatase 57 (38-126) U/L Serum Total Protein 7.6 (6.3-8.2) g/dL Albumin 4.3 (3.5-5.0) g/dL Lipase 98 (23-300) U/L Ur Collection Type Urine Color (YELLOW) Urine Appearance (CLEAR) Urine pH (5-6) Ur Specific [place] (1.005-1.025) Urine Protein (Negative) Urine Ketones (NEGATIVE) Urine Blood (0-5) Jc/ul Urine Nitrite (NEGATIVE) Urine Bilirubin (NEGATIVE) Urine Urobilinogen (0-1) mg/dL Ur Leukocyte Esterase (NEGATIVE) Urine Microscopic RBC (0-2) /HPF Urine Microscopic WBC (0-5) /HPF Ur Epithelial Cells (FEW) /HPF Urine Bacteria (NEGATIVE) /HPF Urine Culture Reflexed (NO) Urine Glucose (NEGATIVE) mg/dL Urine HCG, Qual NEGATIVE (Negative) Specimen Received 03/24/18 03/24/18 Range/Units 20:40 20:34 WBC (4.0-10.5) K/mm3 RBC (4.1-5.4) M/mm3 Hgb (12.0-16.0) gm/dl Hct (35-47) % MCV (78-100) fl MCH (26-32) pg MCHC (32-36) g/dl RDW (11.5-14.0) % Plt Count (150-450) K/mm3 MPV (6-9.5) fl Gran % (36.0-66.0) % Eos # (Auto) (0-0.5) Absolute Lymphs (auto) (1.0-4.6) Absolute Monos (auto) (0.0-1.3) Lymphocytes % (24.0-44.0) % Monocytes % (0.0-12.0) % Eosinophils % (0.00-5.0) % Basophils % (0.0-0.4) % Absolute Granulocytes (1.4-6.9) Basophils # (0-0.4) PT 12.7 H (9.95-12.35) SECONDS INR 1.09 (0.8-3.0) Sodium (137-145) mmol/L Potassium (3.5-5.1) mmol/L Chloride (98-107) mmol/L Carbon Dioxide (22-30) mmol/L Anion Gap (5-15) MEQ/L BUN (7-17) mg/dL Creatinine (0.52-1.04) mg/dL Estimated GFR ML/MIN Glucose (74-106) mg/dL Calcium (8.4-10.2) mg/dL Total Bilirubin (0.2-1.3) mg/dL AST (14-36) U/L ALT (0-35) U/L Alkaline Phosphatase (38-126) U/L Serum Total Protein (6.3-8.2) g/dL Albumin (3.5-5.0) g/dL Lipase (23-300) U/L Ur Collection Type CCMS Urine Color LT.YELLOW (YELLOW) Urine Appearance CLEAR (CLEAR) Urine pH 7.0 (5-6) Ur Specific [place] 1.010 (1.005-1.025) Urine Protein NEGATIVE (Negative) Urine Ketones NEGATIVE (NEGATIVE) Urine Blood 50 (0-5) Jc/ul Urine Nitrite NEGATIVE (NEGATIVE) Urine Bilirubin NEGATIVE (NEGATIVE) Urine Urobilinogen NORMAL (0-1) mg/dL Ur Leukocyte Esterase 1+ (NEGATIVE) Urine Microscopic RBC 0-2 (0-2) /HPF Urine Microscopic WBC 2-5 (0-5) /HPF Ur Epithelial Cells RARE (FEW) /HPF Urine Bacteria RARE (NEGATIVE) /HPF Urine Culture Reflexed YES (NO) Urine Glucose NEGATIVE (NEGATIVE) mg/dL Urine HCG, Qual (Negative) Specimen Received 03-24-18 2100 - Progress Progress: improved Progress Note: 03/25/18 00:39 Pt states, her headaches, slightly improved, she did not vomit, nausea resolved , she has been afebrile, not lethargic or confused, and stable. I explained our findings to her, she stated, that her grandfather had cerebral aneurism, I told her that there is a chance to have aneurism, with a slight bleed with normal CT findings, she understood, also offered spinal tap, discussed all risks and benefits of the procedure, she understood, but refused after careful consideration, she rather wants to follow up with her physician in 1-[address] Sellers, discussed her case, she is willing to see her in the next few days, to initiate a workup for her headaches. She is stable to leave, and will return immediately if any changes, severe headaches, vomiting, lethargy or fever > 102 F. She was given Bactrim DS 1 tablet. Discussed with : Verito Will see patient in: office Counseled pt/family regarding: lab results, diagnosis, need for follow-up, rad results - Departure Time of Disposition: 00:44 Departure Disposition: Home Clinical Impression: Headache Qualifiers: Headache type: unspecified Headache chronicity pattern: acute headache Intractability: not intractable Qualified Code(s): R51 - Headache UTI (urinary tract infection) Qualifiers: Urinary tract infection type: site unspecified Hematuria presence: without hematuria Qualified Code(s): N39.0 - Urinary tract infection, site not specified Condition: Stable Critical Care Time: No Referrals: SURI SELLERS [Primary Care Provider] - Instructions: Urinary Tract Infection, Adult (DC), Headache, Adult (DC) Additional Instructions: Rest x 2-3 days, drink plenty of fluids, follow up with your physician in 1-2 days, return if severe headaches, vomiting, fever> 102 F or lethargy ! Prescriptions: Ondansetron ODT 4 MG [Zofran Odt 4 mg] 4 mg PO Q6H PRN PRN #10 tab.rapdis PRN Reason: Nausea/Vomiting PANTOPRAZOLE 40 mg Tablet [Protonix 40MG Tablet] 40 mg PO QAM #15 tab Sulfamethoxazole/Trimethoprim [Bactrim Ds Tablet] 1 each PO BID #14 tablet
[2018-03-24 20:47] LABS: BASOPHIL % 0.9 % (0.0-0.4); Basophil (Absolute #) 0.08 (0-0.4); Eosinophil % 7.2 % (0.00-5.0); Eosinophil (Absolute #) 0.61 (0-0.5); Granulocyte Absolute (ANC) 4.16 (1.4-6.9); Granulocytes % 49.5 % (36.0-66.0); Hematocrit 37.2 % (35-47); Hemoglobin 12.6 gm/dl (12.0-16.0); Lymphocyte (Absolute #) 2.86 (1.0-4.6); Lymphocytes % 33.9 % (24.0-44.0); Mean Cell Volume 77.7 fl (78-100); Mean Corpuscular Hemoglobin 26.3 pg (26-32); Mean Corpuscular Hgb Concent. 33.9 g/dl (32-36); Mean Platelet Volume 9.5 fl (6-9.5); Monocyte (Absolute #) 0.72 (0.0-1.3); Monocytes % 8.5 % (0.0-12.0); Platelet Count 323 K/mm3 (150-450); Red Blood Count 4.79 M/mm3 (4.1-5.4); Red Cell Distribution Width 14.4 % (11.5-14.0); White Blood Count 8.4 K/mm3 (4.0-10.5)
[2018-03-24 21:10] LABS: ALBUMIN 4.3 g/dL (3.5-5.0); ALKALINE PHOSPHATASE 57 U/L (38-126); ANION GAP 14.7 MEQ/L (5-15); BLOOD UREA NITROGEN 12 mg/dL (7-17); CHLORIDE 107 mmol/L (98-107); Calcium 9.3 mg/dL (8.4-10.2); Carbon Dioxide 23 mmol/L (22-30); Creatinine 1 0.88 mg/dL (0.52-1.04); Glucose 115 mg/dL (74-106); LIPASE 98 U/L (23-300); Potassium 3.7 mmol/L (3.5-5.1); SGOT/AST 20 U/L (14-36); SGPT/ALT 21 U/L (0-35); SODIUM 141 mmol/L (137-145); Total Protein 7.6 g/dL (6.3-8.2)
[2018-03-24 21:11] LABS: INR 1.09 (0.8-3.0)
[2018-03-24 21:11] LABS: Appearance CLEAR (CLEAR); Bilirubin NEGATIVE (NEGATIVE); Blood 50 Ery/ul (0-5); Glucose NEGATIVE (NEGATIVE); Ketones NEGATIVE (NEGATIVE); Leukocyte Esterase 1+ (NEGATIVE); Nitrite NEGATIVE (NEGATIVE); Protein,Urine Dip NEGATIVE (Negative); Urobilinogen NORMAL mg/dL (0-1)
[2018-03-24 21:12] LABS: Bacteria RARE /HPF (NEGATIVE); Epithelial Cells RARE /HPF (FEW); RBC 0-2 /HPF (0-2)
[2018-03-24] MEDS ORDERED: BENADRYL 50 MG/ML IV ONE (22:36)
[2018-03-24] MEDS ORDERED: BENADRYL 50 MG/ML ONE (22:41)
[2018-03-25] MEDS ORDERED: BACTRIM DS TABLET PO STA (00:46)
[2018-03-25] MEDS ORDERED: BACTRIM DS TABLET PO ONE (00:50)
--- NOTE | 2018-03-25 13:12 | XRAY ---
Exam: CT of the abdomen and pelvis with IV contrast from 03/24/2018. CTDI: 20.04 Comparison: CT of the abdomen and pelvis with IV contrast from 10/03/2017. Indication: Emesis, low-grade fever, headache Technique: Post-IV contrast axial images were obtained through the abdomen and pelvis during automated injection of 80 cc of Isovue-370 contrast material. No oral contrast was given. Delayed axial images were obtained through the abdomen and pelvis as well. Reconstructed coronal and sagittal images were created and reviewed. Findings: The lung bases appear clear. The heart size is normal. The liver appears normal. The gallbladder is partially distended and reveals no dense calcifications within it. No biliary duct distention is seen. The spleen is of normal size. It has a mildly heterogeneous attenuation which I believe is due to the timing of the IV injection with respect to the imaging. A splenic mass is not seen. The pancreas, adrenal glands, and kidneys appear unremarkable. No renal calculi, renal mass, or hydronephrosis is seen. Mild bilateral extrarenal pelvi are seen, larger on the right than left. This is unchanged. The kidneys function well on the delayed images. Uniform attenuation of the renal parenchyma is seen. The abdominal aorta appears of normal diameter. Some small nonspecific retroperitoneal lymph nodes are again seen. There are also a few scattered small subcentimeter mesenteric lymph nodes. I believe this is relatively nonspecific. Mesenteric adenitis is not completely excluded. There is no free intraperitoneal air. The anterior abdominal wall appears intact. The appendix is identified and appears unremarkable. No findings of appendicitis are seen. No other inflammatory changes are seen within the right lower quadrant. Scattered colonic stool is seen. No bowel obstruction or bowel wall thickening is seen. The uterus is anteflexed. Both ovaries are identified and reveal some small follicles. Prior dominant left ovarian cyst is no longer seen. No enlarged pelvic lymph nodes or free fluid is seen. The urinary bladder appears unremarkable. The deep pelvic sidewalls appear normal. The skeleton reveals no acute fracture or other aggressive bone lesion. Impression: 1. I again see some small scattered subcentimeter mesenteric lymph nodes, possibly related to mesenteric adenitis. This is unchanged from 10/03/2017. 2. The appendix is identified and appears unremarkable. No findings to suggest acute appendicitis are seen. No other inflammatory changes are seen within the right lower quadrant. 3. Prior prominent left ovarian cyst has resolved. The anteflexed uterus and both ovaries appear unremarkable on the current study. 4. No free air or free fluid is seen. No other acute process is seen within the abdomen or pelvis. 5. Mild scattered colonic fecal retention.
--- NOTE | 2018-03-25 14:45 | XRAY ---
Exam: CT of the head without IV contrast from 03/24/2018. CTDI: 70.77 Comparison: CT of the head without IV contrast from 10/22/2016. Indication: 22-year-old female with history of head pain/headache. The patient states she awoke 8 days ago with a headache that has not abated since then, emesis 4 days. Technique: Non-IV contrast axial images were obtained through the brain. Reconstructed coronal and sagittal images were created and reviewed. Findings: The ventricles are of normal size. No focal mass effect or midline shift is seen. I see no evidence of acute intracranial bleed or abnormal extra-axial fluid collection. The cook matter-white matter interfaces appear normal. No low attenuation territorial infarct is seen. The cortical sulci and basilar cisterns appear unremarkable. The calvarium of the skull appears intact. There is aplasia of the frontal sinus to the right of midline representing no change. The remainder of the visualized paranasal sinuses appears clear. The mastoid air cells appear unremarkable. No mastoid effusion is seen. The visualized orbits appear unremarkable. Impression: 1. No acute intracranial bleed or other acute intracranial process is seen. The findings are unchanged from 10/22/2016.
== END 2018-03-25 01:00 | disposition home or self-care (01) ==
LOC: ED 20:16
DX: R51 Headache (principal); R11.2 Nausea with vomiting, unspecified; N39.0 Urinary tract infection, site not specified; K92.0 Hematemesis
CPT/HCPCS: 36000; 36415; 70450; 74177; 80053; 81000; 83690; 84703; 85025; 85610; 87086; 96360; 96361; 96374; 96375; 99284; J1200; J1885; J2405; A9270-GY

== ENCOUNTER 2018-08-24 14:50 | Emergency (ER) | payer OTHER ==
--- NOTE | 2018-08-24 15:18 | ERPHSYRPT ---
- History of Present Illness Time Seen by Provider: 08/24/18 15:10 Source: patient Exam Limitations: no limitations Patient Subjective Stated Complaint: pt here for pain to right foot since last night after twisitng it, Triage Nursing Assessment: resp easy,pt alert, walked in with a limp,skin w/d/ p.no swelling or bruising noted to foot, strong ppp Physician History: The patient is a 23-year-old female who complains of injuring her right mid foot last night while she was swinging on a pole. She was concerned because this is the same spot that was broken 2 or 3 years ago. It hurts for her to walk on it. She took 2 ibuprofens this morning. She did not ice it. It is not numb or tingly. Her past medical history is significant for depression. Occurred: yesterday Reason for Fall: slipped, fell from height Injuries/Pain Location: lower extremity (right foot) Loss of Consciousness: no loss of consciousness Quality: aching Severity of Pain-Max: moderate Severity of Pain-Current: moderate Modifying Factors: Improves With: pain medication (ibuprofen) Associated Symptoms (Fall): trouble walking Allergies/Adverse Reactions: Penicillins Allergy (Mild, Verified 08/24/18 14:55) MOTHER ET FATHER ARE BOTH ALLERGIC SO WILL NOT TRY WITH CHILD Home Medications: Bupropion HCl Xl 150 mg [Wellbutrin XL 150 MG] 150 mg DAILY 08/24/18 [ History] Phentermine HCl [Adipex-P] 1 tab DAILY 08/24/18 [History] Hx Tetanus, Diphtheria Vaccination/Date Given: Yes Hx Influenza Vaccination/Date Given: Yes Hx Pneumococcal Vaccination/Date Given: No Immunizations Up to Date: Yes - Review of Systems Constitutional: No Fever, No Chills Eyes: No Symptoms Ears, Nose, & Throat: No Symptoms Respiratory: No Cough, No Dyspnea Cardiac: No Chest Pain, No Edema, No Syncope Abdominal/Gastrointestinal: No Abdominal Pain, No Nausea, No Vomiting, No Diarrhea Genitourinary Symptoms: No Dysuria Musculoskeletal: Fall, Injury Skin: No Rash Neurological: No Dizziness, No Focal Weakness, No Sensory Changes Psychological: No Symptoms Endocrine: No Symptoms Hematologic/Lymphatic: No Symptoms Immunological/Allergic: No Symptoms All Other Systems: Reviewed and Negative - Past Medical History Pertinent Past Medical History: No Neurological History: No Pertinent History ENT History: No Pertinent History Cardiac History: No Pertinent History Respiratory History: No Pertinent History Endocrine Medical History: No Pertinent History Musculoskeletal History: No Pertinent History GI Medical History: No Pertinent History History: No Pertinent History Psycho-Social History: Anxiety Female Reproductive Disorders: No Pertinent History Other Medical History: MRSA. No hx of DM - Past Surgical History Past Surgical History: No Neuro Surgical History: No Pertinent History Cardiac: No Pertinent History Respiratory: No Pertinent History Gastrointestinal: No Pertinent History Genitourinary: No Pertinent History Musculoskeletal: No Pertinent History Female Surgical History: No Pertinent History Other Surgical History: Arm Fracture, right foot fracture - Social History Smoking Status: Never smoker Exposure to second hand smoke: No Alcohol Use: None Drug Use: none Patient Lives Alone: No Significant Family History: no pertinent family hx - Female History Hx Last Menstrual Period: jul 23 Hx Now: No - Nursing Vital Signs Nursing Vital Signs: Initial Vital Signs Temperature 98.5 F 08/24/18 14:56 Pulse Rate 100 H 08/24/18 14:56 Respiratory Rate 16 08/24/18 14:56 Blood Pressure 149/105 08/24/18 14:56 O2 Sat by Pulse Oximetry 98 08/24/18 14:56 Pain Scale Pain Intensity 4 - Britany Coma Score Best Eye Response ([place]): (4) open spontaneously Best Verbal Response ([place]any): (5) oriented Best Motor Response ([place]): (6) obeys commands Britany Total: 15 - Physical Exam General Appearance: no apparent distress, alert Head Injury: no evidence of injury Eye Exam: PERRL/EOMI ENT Exam: airway nml Neck Exam: normal inspection, No tenderness Respiratory/Chest Exam: normal breath sounds, No chest tenderness, No respiratory distress Cardiovascular Exam: normal heart sounds Gastrointestinal Exam: soft, No tenderness, No distention, No guarding, No ecchymosis Rectal Exam: not done Back Exam: normal inspection, No vertebral tenderness Extremity Exam: pain with movement, tenderness (mild tenderness to palpation of right medial mid-foot.), No limited range of motion, No swelling Neurologic Exam: alert, oriented x 3, cooperative, sensation nml, No motor deficits Skin Exam: normal color, warm, dry SpO2 Interpretation: normal SpO2: 98 Oxygen Delivery: Room Air - Radiology Exams Right Foot X-ray Interpretation: Interpreted by me, Negative, No Fracture, No Subluxation Ordered Tests: Active Orders 24 hr Category Date Time Status Cold Application STAT Care 08/24/18 15:23 Active FOOT (MINIMUM 3 VIEWS) Stat Exams 08/24/18 15:23 Taken Medication Summary Discontinued Medications Generic Name Dose Route Start Last Admin Trade Name Michael PRN Reason Stop Dose Admin Ketorolac Tromethamine 60 mg 08/24/18 15:23 08/24/18 15:37 Toradol 30 Mg Injection IM 08/24/18 15:24 60 mg STAT ONE Administration Ketorolac Tromethamine Confirm 08/24/18 15:32 Toradol 30 Mg Injection Administered 08/24/18 15:33 Dose 60 mg .ROUTE .STK-MED ONE - Progress Progress: improved Progress Note: 08/24/18 15:53 given toradol 60 mg IM. Pt declines crutches. 08/24/18 15:53 Counseled pt/family regarding: rad results - Departure Time of Disposition: 15:53 Departure Disposition: Home Clinical Impression: Right foot sprain Condition: Stable Critical Care Time: No Referrals: SURI CASTAÑEDA [Primary Care Provider] - Additional Instructions: You were given Toradol 60 mg IM in the ER. Apply ice to the foot as needed. Take Tylenol 1000 mg and ibuprofen 800 mg every 8 hours as needed. Follow-up with your primary medical doctor in 7-10 days if the pain still persists.
[2018-08-24] MEDS ORDERED: TORAdol 30 mg Injection ONE (15:32)
[2018-08-24] MEDS: TORAdol 30 mg Injection IM ONE (15:37)
[2018-08-24 15:44] VITALS: BP 118/76; PULSE 97
[2018-08-24 15:55] VITALS: O2SAT 98
--- NOTE | 2018-08-24 19:45 | XRAY ---
Indication: Pain 1 day. Comparison: November 26, 2017. 3 nonweightbearing views of the right foot again demonstrates normal bones, articulation, and soft tissues.
== END 2018-08-24 16:06 | disposition home or self-care (01) ==
LOC: ED 14:50
DX: S93.601A Unspecified sprain of right foot, initial encounter (principal); X50.1XXA Overexertion from prolonged static or awkward postures, initial encounter; Y93.89 Activity, other specified; Z79.899 Other long term (current) drug therapy
CPT/HCPCS: 73630; 96372; 99284; J1885

== ENCOUNTER 2018-09-06 18:03 | Emergency (ER) | payer OTHER ==
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
[2018-09-06] MEDS ORDERED: PERCOCET TABLET 5/325MG PO STA (18:46)
[2018-09-06] MEDS ORDERED: PERCOCET TABLET 5/325MG ONE (18:49)
[2018-09-06 19:07] VITALS: BP 137/90; PULSE 87; O2SAT 99
--- NOTE | 2018-09-07 08:30 | XRAY ---
Indication: Pain following injury. Comparison: None 3 views of the right ankle demonstrates tiny plantar heel spur and tiny accessory ossicle posterior to the talus. No other bony, articular, or soft tissue abnormalities.
== END 2018-09-06 19:06 | disposition home or self-care (01) ==
LOC: ED 18:03
DX: M25.571 Pain in right ankle and joints of right foot (principal); M79.671 Pain in right foot; V43.53XA Car driver injured in collision with pick-up truck in traffic accident, initial encounter
CPT/HCPCS: 73610; 99284; A9270-GY

== ENCOUNTER 2021-02-28 17:25 | Emergency (ER) | payer OTHER ==
--- NOTE | 2021-02-28 18:05 | ERPHSYRPT ---
- History of Present Illness Time Seen by Provider: 02/28/21 17:37 Source: patient Exam Limitations: no limitations Patient Subjective Stated Complaint: "infection in my finger and in my nipple from a piercing" Triage Nursing Assessment: pt to ED c/o possible infection in R 1st finger from ripping fake nail off and L nipple from nipple piercing. pt states approx 2/10 pain in both areas. both areas appear WNL. Physician History: 25 years old female presented in the ER with chief complaint of right index finger nailbed area swelling and pain, also bilateral nipple soreness from recent piercing which are removed now. Patient report having the symptoms going on for the last couple of days at these places. 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 No difficulty movements at distal interphalangeal joint. No discharge. She noticed minimal discharge from left breast nipple piercing area this morning but no discharge at present. Minimal dull aching pain with palpation. No fever or chills reported. Up-to-date with immunizations. Allergies/Adverse Reactions: Penicillins Allergy (Mild, Verified 02/28/21 17:34) MOTHER ET FATHER ARE BOTH ALLERGIC SO WILL NOT TRY WITH CHILD Home Medications: Bupropion HCl Xl 150 mg [Wellbutrin XL 150 MG] 150 mg PO BID 08/24/18 [History] Phentermine HCl [Adipex-P] 1 tab PO DAILY 08/24/18 [History] Metformin HCl 500 mg [Glucophage 500 MG] 1 tab PO DAILY 02/28/21 [History] Hx Tetanus, Diphtheria Vaccination/Date Given: Yes Hx Influenza Vaccination/Date Given: No Hx Pneumococcal Vaccination/Date Given: No Immunizations Up to Date: No Travel Risk - International Travel Have you traveled outside of the country in past 3 weeks: No - Coronavirus Screening Are you exhibiting any of the following symptoms?: No Close contact with a COVID-19 positive Pt in past 14-21 Days: No - Vaccine Status Have you recieved a Covid-19 vaccination: No - Review of Systems Constitutional: No Symptoms Eyes: No Symptoms Ears, Nose, & Throat: No Symptoms Respiratory: No Symptoms Cardiac: No Symptoms Abdominal/Gastrointestinal: No Symptoms Genitourinary Symptoms: No Symptoms Musculoskeletal: Injury Skin: Skin Lesions Neurological: No Symptoms Psychological: No Symptoms - Past Medical History Pertinent Past Medical History: Yes Neurological History: No Pertinent History ENT History: No Pertinent History Cardiac History: No Pertinent History Respiratory History: No Pertinent History Endocrine Medical History: No Pertinent History Musculoskeletal History: No Pertinent History GI Medical History: No Pertinent History History: No Pertinent History Psycho-Social History: Anxiety Female Reproductive Disorders: No Pertinent History Other Medical History: MRSA. No hx of DM. PCOS - Past Surgical History Past Surgical History: No Neuro Surgical History: No Pertinent History Cardiac: No Pertinent History Respiratory: No Pertinent History Gastrointestinal: No Pertinent History Genitourinary: No Pertinent History Musculoskeletal: No Pertinent History Female Surgical History: No Pertinent History Other Surgical History: Arm Fracture, right foot fracture - Social History Smoking Status: Never smoker Exposure to second hand smoke: No Alcohol Use: None Drug Use: none Patient Lives Alone: No Significant Family History: no pertinent family hx - Female History Hx Last Menstrual Period: unknown Hx Now: (PCOS, irreg periods.) - Nursing Vital Signs Nursing Vital Signs: Initial Vital Signs Temperature 98.2 F 02/28/21 17:36 Pulse Rate 94 H 02/28/21 17:36 Respiratory Rate 18 02/28/21 17:36 Blood Pressure 144/94 02/28/21 17:36 O2 Sat by Pulse Oximetry 98 02/28/21 17:36 Pain Scale Pain Intensity 2 - Physical Exam General Appearance: no apparent distress Eye Exam: PERRL/EOMI Ears, Nose, Throat Exam: normal ENT inspection Neck Exam: normal inspection, supple, full range of motion Respiratory Exam: normal breath sounds, lungs clear, No chest tenderness Cardiovascular Exam: regular rate/rhythm, normal heart sounds Extremity Exam: normal range of motion, pelvis stable, other (Mild erythema at base of right index finger nail with minimal tenderness. Intact range of motion at distal interphalangeal joint.) Neurologic Exam: alert, oriented x 3, cooperative Skin Exam: normal color, other (Bilateral nipple piercing holes with minimal erythema around and no discharge on palpation or squeezing.) SpO2 Interpretation: normal SpO2: 98 O2 Delivery: Room Air - Progress Progress: unchanged Progress Note: 02/28/21 18:06 She has erythema nailbed area, and minimal erythema around the nipple. Sting sites with no obvious discharge. I think is reactive. She is started on a short course of Bactrim. Recommended Tylenol ibuprofen as needed and outpatient follow-up. Discussed signs symptoms of worsening needing return to ER which she seems understanding. Counseled pt/family regarding: diagnosis, need for follow-up - Departure Departure Disposition: Home Clinical Impression: Finger infection, Nipple infection in female Condition: Stable Critical Care Time: No Referrals: LAURENT AKBAR [Primary Care Provider] - Follow Up with PCP/3 days Instructions: Cellulitis (Skin Infection), Adult (DC) Additional Instructions: Take Tylenol/ibuprofen as needed. Follow-up with your primary care physician for reevaluation. Keep it clean and dry. Return to ER for increased swelling redness discharge/fever chills or difficulty movements of finger. Prescriptions: Smz/Tmp Ds Tablet [Bactrim Ds Tablet] 1 udtab PO BID #10 tablet
[2021-02-28 18:11] VITALS: BP 144/94; PULSE 94; O2SAT 98
== END 2021-02-28 18:39 | disposition home or self-care (01) ==
LOC: ED 17:25
DX: W26.8XXA Contact with other sharp object(s), not elsewhere classified, initial encounter (principal); Y93.89 Activity, other specified; Y92.9 Unspecified place or not applicable
CPT/HCPCS: 84703; 99283

== ENCOUNTER 2022-07-01 20:27 | Emergency (ER) | payer OTHER ==
[2022-07-01 21:35] VITALS: BP 132/88; PULSE 88; O2SAT 98
[2022-07-01] MEDS ORDERED: TORAdol 30 mg Injection IM ONE (21:43)
[2022-07-01] MEDS ORDERED: TORAdol 30 mg Injection ONE (21:47)
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
--- NOTE | 2022-07-02 08:48 | XRAY ---
Indication: Pain following injury. Comparison: None 3 view left hand obtained. No bony, articular, or soft tissue abnormalities.
== END 2022-07-01 22:03 | disposition home or self-care (01) ==
LOC: ED 20:27
DX: S63.92XA Sprain of unspecified part of left wrist and hand, initial encounter (principal); V86.96XA Unspecified occupant of dirt bike or motor/cross bike injured in nontraffic accident, initial encounter; M79.642 Pain in left hand; Z79.899 Other long term (current) drug therapy; Z79.84 Long term (current) use of oral hypoglycemic drugs
CPT/HCPCS: 36415; 73130; 84703; 96372; 99283; J1885

== ENCOUNTER 2023-02-10 00:06 | Emergency (ER) | payer OTHER ==
[2023-02-10 00:22] VITALS: O2SAT 98
--- NOTE | 2023-02-10 00:30 | ERPHSYRPT ---
- History of Present Illness Time Seen by Provider: 02/10/23 00:30 Source: patient, family Exam Limitations: clinical condition, intoxication Patient Subjective Stated Complaint: parent states "We were at the [employer] and she had like 4 pitchers of beer there and then we went to the bar. At the bar she was drinking hard liquior. She is super intoxicated and she threw up at least 5 times. She kept saying that she is really hot." Triage Nursing Assessment: Pt presents to Ed via wheelchair with mom, pt alert and oriented x3, pt laying in bed in a position with emesis bag close by, pt moaning in bed, pt laughing and talking to ED staff Physician History: This is a 27-year-old obese white female who was brought to the emergency department by her mother after the patient had consumed large amount of alcohol including beer and hard liquor in the last several hours. The patient was feeling diaphoretic as though she was going to pass out. In addition the patient had at least 5 episodes of vomiting. Patient denies chest pain. She has no abdominal pain at this time. She is nauseated. She is not short of breath. Patient is not suicidal or homicidal. Severity: mild (To moderate) Associated Symptoms: nausea, vomiting, diaphoresis, loss of appetite Allergies/Adverse Reactions: Penicillins Allergy (Mild, Verified 02/28/21 17:34) MOTHER ET FATHER ARE BOTH ALLERGIC SO WILL NOT TRY WITH CHILD kiwi Allergy (Verified 02/10/23 00:14) lazaro Allergy (Verified 02/10/23 00:14) Sulfa (Sulfonamide Antibiotics) Allergy (Verified 07/01/22 20:39) Home Medications: Bupropion HCl Xl 150 mg [Wellbutrin XL 150 MG] 150 mg PO BID 08/24/18 [History] Phentermine HCl [Adipex-P] 1 tab PO DAILY 08/24/18 [History] Metformin HCl 500 mg [Glucophage 500 MG] 1 tab PO DAILY 02/28/21 [History] Hx Tetanus, Diphtheria Vaccination/Date Given: Yes Hx Influenza Vaccination/Date Given: No Hx Pneumococcal Vaccination/Date Given: No Immunizations Up to Date: Yes Travel Risk - International Travel Have you traveled outside of the country in past 3 weeks: No - Coronavirus Screening Are you exhibiting any of the following symptoms?: No Close contact with a COVID-19 positive Pt in past 14-21 Days: No - Vaccine Status Have you recieved a Covid-19 vaccination: Yes 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: [employer] - Vaccination Dates Date of 2cond Vaccination (if applicable): unknown - Review of Systems Constitutional: Weakness, Other (Intoxicated) Eyes: No Symptoms Ears, Nose, & Throat: No Symptoms Respiratory: No Symptoms Cardiac: No Symptoms Abdominal/Gastrointestinal: Nausea, Vomiting, Appetite Changes Genitourinary Symptoms: No Symptoms Musculoskeletal: No Symptoms Skin: No Symptoms Neurological: No Symptoms Psychological: No Symptoms Endocrine: No Symptoms Hematologic/Lymphatic: No Symptoms Immunological/Allergic: No Symptoms All Other Systems: Reviewed and Negative - Past Medical History Pertinent Past Medical History: Yes Neurological History: No Pertinent History ENT History: No Pertinent History Cardiac History: No Pertinent History Respiratory History: No Pertinent History Endocrine Medical History: No Pertinent History Musculoskeletal History: No Pertinent History GI Medical History: No Pertinent History History: No Pertinent History Psycho-Social History: Anxiety Female Reproductive Disorders: No Pertinent History Other Medical History: MRSA. No hx of DM. PCOS - Past Surgical History Past Surgical History: No Neuro Surgical History: No Pertinent History Cardiac: No Pertinent History Respiratory: No Pertinent History Gastrointestinal: No Pertinent History Genitourinary: No Pertinent History Musculoskeletal: No Pertinent History Female Surgical History: No Pertinent History Other Surgical History: Arm Fracture, right foot fracture - Social History Smoking Status: Never smoker Exposure to second hand smoke: No Alcohol Use: None Drug Use: none Patient Lives Alone: No Significant Family History: no pertinent family hx - Female History Hx Last Menstrual Period: 01/17/23 Hx Now: No - Nursing Vital Signs Nursing Vital Signs: Initial Vital Signs Pulse Rate 79 02/10/23 00:15 Respiratory Rate 15 02/10/23 00:15 Blood Pressure 113/83 02/10/23 00:15 O2 Sat by Pulse Oximetry 98 02/10/23 00:15 Pain Scale Pain Intensity 3 - Physical Exam General Appearance: obese, other (Intoxicated) Eye Exam: PERRL/EOMI, eyes nml inspection Ears, Nose, Throat Exam: normal ENT inspection, moist mucous membranes Neck Exam: normal inspection, non-tender, supple, full range of motion Respiratory Exam: normal breath sounds, lungs clear, airway intact, No chest tenderness, No respiratory distress Cardiovascular Exam: regular rate/rhythm, normal heart sounds, normal peripheral pulses Gastrointestinal/Abdomen Exam: soft, normal bowel sounds, No tenderness Pelvic Exam: not done Rectal Exam: not done Back Exam: normal inspection, normal range of motion, No CVA tenderness Extremity Exam: normal inspection, normal range of motion, pelvis stable Neurologic Exam: intoxicated appearance (She is answering questions) Skin Exam: normal color, warm, dry Lymphatic Exam: No adenopathy SpO2 Interpretation: normal SpO2: 98 O2 Delivery: Room Air - Course Nursing assessment & vital signs reviewed: Yes Ordered Tests: Active Orders 24 hr Category Date Time Status Clean Catch Urine Specimen STAT Care 02/10/23 00:52 Active IV Insertion STAT Care 02/10/23 00:52 Active CBC W DIFF Stat Lab 02/10/23 01:10 Completed CMP Stat Lab 02/10/23 01:10 Completed ETHYL ALCOHOL Stat Lab 02/10/23 01:10 Completed UA W/RFX UR CULTURE Stat Lab 02/10/23 01:48 Received Urine Triage Profile Stat Lab 02/10/23 01:48 Received Medication Summary Discontinued Medications Generic Name Dose Route Start Last Admin Trade Name Freq PRN Reason Stop Dose Admin Sodium Chloride 1,000 mls @ 999 mls/hr 02/10/23 00:52 02/10/23 01:06 Sodium Chloride 0.9% 1000 Ml IV 02/10/23 01:52 999 mls/hr .Q1H1M STA Administration Sodium Chloride Confirm 02/10/23 01:05 Sodium Chloride 0.9% 1000 Ml Administered 02/10/23 01:06 Dose 1,000 mls @ ud .ROUTE .STK-MED ONE Ondansetron HCl 4 mg 02/10/23 00:52 02/10/23 01:07 Ondansetron Hcl 4 Mg/2 Ml Vial IV 02/10/23 00:53 4 mg STAT ONE Administration Ondansetron HCl Confirm 02/10/23 01:05 Ondansetron Hcl 4 Mg/2 Ml Vial Administered 02/10/23 01:06 Dose 4 mg .ROUTE .STK-MED ONE Pantoprazole Sodium 40 mg 02/10/23 00:53 02/10/23 01:07 Pantoprazole 40 Mg Vial IV 02/10/23 00:54 40 mg STAT ONE Administration Pantoprazole Sodium Confirm 02/10/23 01:05 Pantoprazole 40 Mg Vial Administered 02/10/23 01:06 Dose 40 mg IV .STK-MED ONE Lab/Rad Data: Laboratory Result Diagrams 02/10/23 01:10 02/10/23 01:10 Laboratory Results 02/10/23 02/10/23 Range/Units 01:10 01:10 WBC 7.3 (4.0-10.5) x10^3/uL RBC 5.09 (4.1-5.4) x10^6/uL Hgb 15.4 (12.0-16.0) g/dL Hct 45.6 (35-47) % MCV 89.6 (78-100) fL MCH 30.3 (26-32) pg MCHC 33.8 (32-36) g/dL RDW 11.6 (11.5-14.0) % Plt Count 314 (150-450) x10^3/uL MPV 9.2 (7.5-11.0) fL Gran % 66.7 H (36.0-66.0) % Immature Gran % (Auto) 0.1 (0.00-0.4) % Nucleat RBC Rel Count 0.0 (0.00-0.1) % Eos # (Auto) 0.11 (0-0.5) x10^3/uL Immature Gran # (Auto) 0.01 (0.00-0.03) x10^3u/L Absolute Lymphs (auto) 1.94 (1.0-4.6) x10^3/uL Absolute Monos (auto) 0.30 (0.0-1.3) x10^3/uL Absolute Nucleated RBC 0.00 (0.00-0.01) x10^3u/L Lymphocytes % 26.4 (24.0-44.0) % Monocytes % 4.1 (0.0-12.0) % Eosinophils % 1.5 (0.00-5.0) % Basophils % 1.2 (0.0-0.4) % Absolute Granulocytes 4.89 (1.4-6.9) x10^3/uL Basophils # 0.09 (0-0.4) x10^3/uL Sodium 145 (137-145) mmol/L Potassium 3.7 (3.5-5.1) mmol/L Chloride 107 (98-107) mmol/L Carbon Dioxide 20 L (22-30) mmol/L Anion Gap 21.8 H (5-15) MEQ/L BUN 8 (7-17) mg/dL Creatinine 0.84 (0.52-1.04) mg/dL Estimated GFR > 60.0 ML/MIN Glucose 89 (74-106) mg/dL Calcium 9.1 (8.4-10.2) mg/dL Total Bilirubin 0.40 (0.2-1.3) mg/dL AST 32 (14-36) U/L ALT 27 (0-35) U/L Alkaline Phosphatase 44 (38-126) U/L Serum Total Protein 8.9 H (6.3-8.2) g/dL Albumin 5.0 (3.5-5.0) g/dL Ethyl Alcohol 161 H (0-10) mg/dL - Progress Progress: improved Progress Note: 02/10/23 00:59 This patient's medical issue is 1 of moderate complexity. The level of complexity and the work-up was based on the review of the patient's past medical history, review of the patient's medication list, review of the patient's drug allergy list, history of present illness and physical findings on examination. The work-up includes placement of intravenous line, infusion of normal saline solution, infusion of intravenous Protonix and intravenous Zofran. CBC, CMP, alcohol level, urinalysis and urine triage screen were obtained. 02/10/23 02:06 Patient states that she is feeling better and wants to go home. Counseled pt/family regarding: lab results, diagnosis, need for follow-up Medical Desision Making - Independent Historian Additional History obtained from: Mother (Is an independent historian) - Diagnostic Testing Diagnostic test were ordered, analyzed, and reviewed by me: Yes - Risk of complications The pt has a mod risk of morbidity or mortality based on: Need for prescription drug management - Departure Departure Disposition: Home Clinical Impression: Vomiting, Alcohol intoxication Condition: Stable Critical Care Time: No Referrals: LAURENT AKBAR, PRACTICE BILLING ASSOCIATE [Primary Care Provider] - Follow up/PCP as directed Additional Instructions: Avoid alcohol use. Plenty of clear liquids before advancing diet. Prescriptions: Ondansetron ODT 4 MG [Zofran Odt 4 mg] 4 mg PO Q6H PRN PRN #10 tablet PRN Reason: Vomiting Famotidine 20 mg [Pepcid 20 MG] 20 mg PO DAILY #10 tablet
[2023-02-10] MEDS ORDERED: Zofran 4 MG/2 ML VIAL IV ONE (00:52)
[2023-02-10] MEDS ORDERED: Sodium Chloride 0.9% 1000 ML 1,000 ML IV STA (00:52)
[2023-02-10] MEDS ORDERED: PROTONIX 40 MG IV IV ONE ×2 (00:53→01:05)
[2023-02-10] MEDS ORDERED: Sodium Chloride 0.9% 1000 ML 1,000 ML ONE (01:05)
[2023-02-10] MEDS ORDERED: Zofran 4 MG/2 ML VIAL ONE (01:05)
[2023-02-10 01:14] LABS: Absolute Neutrophil Ct (ANC) 4.89 x10^3/uL (1.4-6.9); BASOPHIL % 1.2 % (0.0-0.4); Basophil (Absolute #) 0.09 x10^3/uL (0-0.4); Eosinophil % 1.5 % (0.00-5.0); Eosinophil (Absolute #) 0.11 x10^3/uL (0-0.5); Hematocrit 45.6 % (35-47); Hemoglobin 15.4 g/dL (12.0-16.0); IMMATURE GRAN # 0.01 x10^3u/L (0.00-0.03); IMMATURE GRAN % 0.1 % (0.00-0.4); Lymphocyte (Absolute #) 1.94 x10^3/uL (1.0-4.6); Lymphocytes % 26.4 % (24.0-44.0); Mean Cell Volume 89.6 fL (78-100); Mean Corpuscular Hemoglobin 30.3 pg (26-32); Mean Corpuscular Hgb Concent. 33.8 g/dL (32-36); Mean Platelet Volume 9.2 fL (7.5-11.0); Monocytes % 4.1 % (0.0-12.0); Neutrophil % 66.7 % (36.0-66.0); Platelet Count 314 x10^3/uL (150-450); Red Blood Count 5.09 x10^6/uL (4.1-5.4); Red Cell Distribution Width 11.6 % (11.5-14.0); White Blood Count 7.3 x10^3/uL (4.0-10.5)
[2023-02-10 01:27] LABS: ALKALINE PHOSPHATASE 44 U/L (38-126); ANION GAP 21.8 MEQ/L (5-15); BLOOD UREA NITROGEN 8 mg/dL (7-17); CHLORIDE 107 mmol/L (98-107); Calcium 9.1 mg/dL (8.4-10.2); Carbon Dioxide 20 mmol/L (22-30); Creatinine 1 0.84 mg/dL (0.52-1.04); EST GLOMERULAR FILTRATION RATE > 60.0 ML/MIN; ETHYL ALCOHOL 161 mg/dL (0-10); Glucose 89 mg/dL (74-106); Potassium 3.7 mmol/L (3.5-5.1); SGOT/AST 32 U/L (14-36); SGPT/ALT 27 U/L (0-35); SODIUM 145 mmol/L (137-145); Total Protein 8.9 g/dL (6.3-8.2)
[2023-02-10 02:09] LABS: Appearance Clear (Clear); Bacteria None Seen /HPF (None Seen); Bilirubin Negative (Negative); Blood Negative (Negative); Epithelial Cells None Seen /HPF (None Seen); Glucose, Urine Negative (Negative); Hyaline Casts NONE SEEN /LPF (0-2); Ketones Trace (Negative); Leukocyte Esterase Negative (Negative); Nitrite Negative (Negative); Ph 5.5 (4.6-8.0); Protein,Urine Dip Negative (Negative); RBC 0-2 /HPF (0-5); Urobilinogen 0.2 mg/dL (0.2); WBC 0-2 /HPF (0-5)
[2023-02-10 02:10] VITALS: BP 117/82; PULSE 88
[2023-02-10 02:12] LABS: ADD URINE CULTURE? NO (NO)
[2023-02-10 02:20] LABS: Amphetamine,Urine NEGATIVE (NEGATIVE); Barbiturate,Urine NEGATIVE (NEGATIVE); Benzodiazepine,Urine NEGATIVE (NEGATIVE); Cocaine,Urine NEGATIVE (NEGATIVE); Methadone,Urine NEGATIVE (NEGATIVE); Opiate,Urine NEGATIVE (NEGATIVE); PCP,Urine NEGATIVE (NEGATIVE); THC,Urine POSITIVE (NEGATIVE)
== END 2023-02-10 02:17 | disposition home or self-care (01) ==
LOC: ED 00:06
DX: F10.129 Alcohol abuse with intoxication, unspecified (principal); R11.10 Vomiting, unspecified; Z20.828 Contact with and (suspected) exposure to other viral communicable diseases
CPT/HCPCS: 36000; 36415; 80053; 80307; 81001; 82077; 85025; 96360; 96374; 96375; 99284; J2405

== ENCOUNTER 2023-07-22 08:25 | Day surgery (SDC) | payer OTHER ==
--- NOTE | 2023-07-22 08:07 | HP ---
DATE OF SURGERY: 07/22/2023 HISTORY OF PRESENT ILLNESS: The patient is a 28-year-old with severe nausea. It has been going on for a year, worse recently. No specific trigger. There is some mid upper abdominal aches. She had EGD and colonoscopy per the patient, had history of gastroparesis and gastric emptying study in the past. She denies any liver problems. PAST MEDICAL HISTORY: Reflux. PAST SURGICAL HISTORY: EGD. Colonoscopy. [place] tooth removal. MEDICATIONS: Pantoprazole, venlafaxine, Uha-Dl-Lsulhblm, promethazine, Lunesta, cholestyramine. ALLERGIES: PENICILLIN. FAMILY HISTORY: Hypothyroidism, diabetes, inflammatory disease, renal cancer. SOCIAL HISTORY: She vapes and occasional alcohol use. REVIEW OF SYSTEMS: Fourteen systems reviewed. No chest pain or palpitations. Other systems negative or noncontributory as above and per preadmission questionnaire. PHYSICAL EXAMINATION: Height 5'2". BMI 34.75. GENERAL: No acute distress. HEENT: Sclerae nonicteric. EOMI. Oral mucous membranes moist. NECK: No JVD. CHEST: Equal excursion, nonlabored breathing. CVS: Regular rate and rhythm. ABDOMEN: Soft, some mild upper abdominal tenderness. No peritoneal signs. EXTREMITIES: No cyanosis or edema. NEURO: Alert, oriented, moving extremities symmetrically. PSYCH: Appropriate mood and affect. SKIN: Dry. IMPRESSION: Acute exacerbation chronic cholecystitis, symptomatic biliary dyskinesia. I recommend cholecystectomy. Risks including but not limited to bleeding or infection, risk of trocar injury or hernia, risk of bile leak, bile duct injury, retained stone or sludge possibly requiring further procedure either open or ERCP, general risk of anesthesia, deep venous thrombosis, pulmonary embolism, pneumonia, perioperative risk of aches, pains, bloating, constipation and/or loose stools possibly even chronic in nature and possibly no improvement in his preoperative symptoms possibly requiring further work up, studies, endoscopies, other studies or referrals. Otherwise continue medications for reflux and irritable bowel syndrome. She will have laparoscopic cholecystectomy as an outpatient under general anesthetic.
[~2023-07-22 08:25] MED LIST: Sensorcaine 0.25% 10 ML ONE
[2023-07-22] MEDS ORDERED: Levofloxacin 500MG/100ML D5W 500 MG/100 ML BAG IV SCH (08:45)
[2023-07-22] MEDS ORDERED: CLINDAMYCIN-D5W 900 MG/50 ML*** 900 MG/50 ML BAG IV SCH (09:00)
[2023-07-22] MEDS ORDERED: Lactated Ringers 1,000 ML IV SCH (09:00)
[2023-07-22] MEDS ORDERED: CLINDAMYCIN-D5W 900 MG/50 ML*** 900 MG/50 ML BAG IV ONE (09:01)
[2023-07-22] MEDS ORDERED: Lactated Ringers 1,000 ML IV ONE ×3 (09:02→13:22)
[2023-07-22] MEDS ORDERED: Levofloxacin 500MG/100ML D5W 500 MG/100 ML BAG IV ONE (09:02)
[2023-07-22 09:15] LABS: HCG URINE TEST NEGATIVE (NEGATIVE)
[2023-07-22 09:25] LABS: Hematocrit 39.6 % (35-47); Hemoglobin 13.2 g/dL (12.0-16.0); Mean Cell Volume 89.2 fL (78-100); Mean Corpuscular Hemoglobin 29.7 pg (26-32); Mean Corpuscular Hgb Concent. 33.3 g/dL (32-36); Platelet Count 256 x10^3/uL (150-450); Red Blood Count 4.44 x10^6/uL (4.1-5.4); Red Cell Distribution Width 11.5 % (11.5-14.0)
[2023-07-22 09:38] LABS: ANION GAP 10.4 MEQ/L (5-15); BLOOD UREA NITROGEN 12 mg/dL (7-17); CHLORIDE 109 mmol/L (98-107); Calcium 8.5 mg/dL (8.4-10.2); Carbon Dioxide 24 mmol/L (22-30); Creatinine 1 0.76 mg/dL (0.52-1.04); EST GLOMERULAR FILTRATION RATE > 60.0 ML/MIN; Glucose 92 mg/dL (74-106); Potassium 4.1 mmol/L (3.5-5.1); SODIUM 139 mmol/L (137-145)
[2023-07-22] MEDS ORDERED: TORAdol 30 mg Injection ONE (10:52)
[2023-07-22] MEDS ORDERED: Zemuron 100 MG/10 ML ONE ×2 (10:52→13:00)
[2023-07-22] MEDS ORDERED: Decadron 4 MG INJ ONE (10:52)
[2023-07-22] MEDS ORDERED: Zofran 4 MG/2 ML VIAL ONE ×2 (10:52→12:50)
[2023-07-22] MEDS ORDERED: BRIDION 200MG/2ML IV ONE (10:52)
[2023-07-22] MEDS ORDERED: Xylocaine-Mpf 2% 5 Ml Vial ONE (10:52)
[2023-07-22] MEDS ORDERED: DIPRIVAN 200 MG/20 ML IV ONE (10:52)
[2023-07-22] MEDS ORDERED: Versed 2 MG/2 ML Injection ONE (10:53)
[2023-07-22] MEDS ORDERED: SUBLIMAZE 100 MCG/2 ML ONE ×2 (10:53→13:00)
[2023-07-22] MEDS ORDERED: Compazine 10 MG/2 ML ONE (12:35)
[2023-07-22 13:24] VITALS: RESP 18; O2SAT 99
[2023-07-22] MEDS ORDERED: TYLENOL EXTRA STRENGTH 500 MG PO PRN (13:25)
[2023-07-22 13:31] VITALS: TEMP 97
[2023-07-22 13:48] VITALS: BP 143/95; PULSE 74
[2023-07-22] MEDS ORDERED: Ephedrine Sulfate 50 MG/ML ONE (14:25)
--- NOTE | 2023-07-23 07:52 | OP ---
SURGERY DATE/TIME: 07/22/2023 1112 PREOPERATIVE DIAGNOSIS: Acute exacerbation of chronic cholecystitis, symptomatic dyskinesia. POSTOPERATIVE DIAGNOSIS: Acute exacerbation of chronic cholecystitis, symptomatic dyskinesia. PROCEDURE: Laparoscopic cholecystectomy. SURGEON: Dr. Shaun Knutson. ANESTHESIA: General. ESTIMATED BLOOD LOSS: Minimal. INDICATIONS: As noted above. Risks and benefits explained in detail but not limited to and consent obtained. DESCRIPTION OF PROCEDURE AND FINDINGS: The patient was taken to the operating room. General anesthesia induced. Abdomen prepped and draped in usual sterile fashion. After official time out and no disagreement with planned procedure, a transverse incision made in the supraumbilical area. Fascia grasped, pulled upward. Veress needle inserted and tested with saline. Pneumoperitoneum accomplished insufflating opening pressure of 0-15. An 11 mm bladeless port and camera were inserted without difficulty followed by two - 5 mm right upper quadrant ports and 5 mm epigastric port. There is no evidence of any intraabdominal injury secondary to trocar insertion. The gallbladder is grasped, retracted over the edge of the liver and laterally away from Calot's triangle dissected posterior, lateral to anterior fashion. Once the critical view was obtained both anteriorly and posteriorly, the cystic duct and cystic artery were clipped x3 and divided in the usual fashion. The cystic artery was kind of splayed out requiring clipping three different branches but was able to be isolated. The gallbladder is then slowly and carefully dissected free from its dense attachments to the liver bed staying directly on the gallbladder wall. Just prior to releasing from final attachments to the anterior edge of the liver, the liver bed re-inspected. Clips noted in place in the cystic duct and cystic artery stumps. No signs of any active bleeding or bile leakage. It was felt there is no benefit of drain placement. The gallbladder was released from final attachments and placed in the provided sac pulled up and out the supraumbilical port site enlarged slightly with the clamp. The gallbladder was able to be decompressed, pulled free and passed off. The fascial defect was closed with puncture closure device with #1 Vicryl. Pneumoperitoneum decompressed. The wound irrigated out. Skin incision closed with 4-0 Vicryl. 0.25% Marcaine local injected along the skin incision fascial defect. The patient tolerated the procedure well. There were no immediate complications. The family was not out there in the waiting area but I spoke to them later. She was transferred to the recovery room in stable condition.
== END 2023-07-22 13:55 | disposition home or self-care (01) ==
LOC: SDC 08:25
PROVIDERS: ATTEND Surgery
DX: K81.2 Acute cholecystitis with chronic cholecystitis (principal); Z79.899 Other long term (current) drug therapy
CPT/HCPCS: 36415; 80048; 81025; 85027; J1100; J1885; J1956; J2250; J2405; J2704; J3010; A9270-GY

== ENCOUNTER 2024-03-26 16:59 | Emergency (ER) | payer SELFPAY ==
[2024-03-26 17:24] VITALS: RESP 18; TEMP 97.2
--- NOTE | 2024-03-26 17:36 | ERPHSYRPT ---
- History of Present Illness Time Seen by Provider: 03/26/24 17:05 Historian: patient Exam Limitations: no limitations Patient Subjective Stated Complaint: pt here for upper abd pain since december 29 and last couple days has seen having n/v/d and fever, Triage Nursing Assessment: pt alert, resp easy, skin w/d/p. no edema noted abd soft, moves all ext well Physician History: 28 years old female presented in the ER with complains of upper abdominal pain off and on for the last 2-1/2 months with associated nausea vomiting and diarrhea for the last 4 days. Patient reports she is not able to hold much down. Pain is dull aching mild to moderate with no significant aggravating or relieving factors. Subjective feeling of fever and chills for the last couple of days. Minimal abdominal pain currently. She is afebrile. Allergies/Adverse Reactions: Penicillins Allergy (Mild, Verified 03/26/24 17:13) Rash MOTHER ET FATHER ARE BOTH ALLERGIC SO WILL NOT TRY WITH CHILD kiwi Allergy (Verified 03/26/24 17:13) lazaro Allergy (Verified 03/26/24 17:13) Sulfa (Sulfonamide Antibiotics) Allergy (Verified 03/26/24 17:13) Rash Hx Tetanus, Diphtheria Vaccination/Date Given: Yes Hx Influenza Vaccination/Date Given: No Hx Pneumococcal Vaccination/Date Given: No Immunizations Up to Date: Yes Travel Risk - International Travel Have you traveled outside of the country in past 3 weeks: No - Emerging Infectious Disease Are you exhibiting symptoms associated with any current EIDs: Yes Symptoms: Abdominal Pain - Review of Systems Constitutional: No Symptoms Ears, Nose, & Throat: No Symptoms Respiratory: No Symptoms Cardiac: No Symptoms Abdominal/Gastrointestinal: Abdominal Pain, Nausea, Vomiting, Diarrhea Genitourinary Symptoms: No Symptoms Musculoskeletal: No Symptoms Skin: No Symptoms Neurological: No Symptoms Hematologic/Lymphatic: No Symptoms Immunological/Allergic: No Symptoms - Past Medical History Pertinent Past Medical History: No Neurological History: No Pertinent History ENT History: No Pertinent History Cardiac History: No Pertinent History Respiratory History: No Pertinent History Endocrine Medical History: No Pertinent History Musculoskeletal History: No Pertinent History GI Medical History: GERD History: No Pertinent History Psycho-Social History: Anxiety, Depression Female Reproductive Disorders: No Pertinent History Other Medical History: anemia - Past Surgical History Past Surgical History: Yes Neuro Surgical History: No Pertinent History Cardiac: No Pertinent History Respiratory: No Pertinent History Gastrointestinal: Cholecystectomy Genitourinary: No Pertinent History Musculoskeletal: No Pertinent History Female Surgical History: No Pertinent History, Dilation & Curettage Other Surgical History: wisdom tooth removal , colonoscopy, egd Significant Family History: no pertinent family hx - Female History Hx Last Menstrual Period: last week Hx Now: No (unsure) - Social History Smoking Status: Never smoker Exposure to second hand smoke: No Alcohol Use: None Drug Use: none Patient Lives Alone: No - Social Determinants of Health Do you worry about a steady place to live?: No Do you have any problems with any of the following?: No known problems In the past 12 months,have you had to go without utilities?: No Transportation Issues: No Has anyone in your support network made you feel unsafe?: No Have you or anyone in your house had to go without enough: No - Nursing Vital Signs Nursing Vital Signs: Initial Vital Signs Temperature 97.2 F 03/26/24 17:23 Pulse Rate 85 03/26/24 17:23 Respiratory Rate 18 03/26/24 17:23 Blood Pressure 122/80 03/26/24 17:23 O2 Sat by Pulse Oximetry 96 03/26/24 17:23 Pain Scale Pain Intensity 4 - Physical Exam General Appearance: no apparent distress, alert Eye Exam: PERRL/EOMI Ears, Nose, Throat Exam: normal ENT inspection Neck Exam: normal inspection, supple, full range of motion Respiratory Exam: normal breath sounds, lungs clear Cardiovascular Exam: regular rate/rhythm, normal heart sounds Gastrointestinal/Abdomen Exam: soft, normal bowel sounds, No tenderness, No distention Back Exam: normal inspection, normal range of motion Extremity Exam: normal inspection, normal range of motion Neurologic Exam: alert, oriented x 3, cooperative Skin Exam: normal color SpO2 Interpretation: normal SpO2: 96 O2 Delivery: Room Air Ordered Tests: Active Orders 24 hr Category Date Time Status IV Insertion STAT Care 03/26/24 17:30 Active NPO (ED) STAT Care 03/26/24 17:30 Active CBC W DIFF Stat Lab 03/26/24 17:55 Completed CMP Stat Lab 03/26/24 17:55 Completed HCG QUALITATIVE, URINE Stat Lab 03/26/24 18:53 Completed LIPASE Stat Lab 03/26/24 17:55 Completed UA W/RFX UR CULTURE Stat Lab 03/26/24 18:41 Completed Medication Summary Discontinued Medications Generic Name Dose Route Start Last Admin Trade Name Michael PRN Reason Stop Dose Admin Acetaminophen 975 mg 03/26/24 17:30 03/26/24 17:54 Acetaminophen 325 Mg Tablet PO 03/26/24 17:31 975 mg STAT ONE Administration Acetaminophen Confirm 03/26/24 17:42 Acetaminophen 325 Mg Tablet Administered 03/26/24 17:43 Dose 975 mg .ROUTE .STK-MED ONE Al Hydrox/Mg Hydrox/Simethicone Confirm 03/26/24 17:42 Mag Hydrox/Al Hydrox/Simeth 30 Ml Udcup Administered 03/26/24 17:43 Dose 30 ml .ROUTE .STK-MED ONE Famotidine 20 mg 03/26/24 17:30 03/26/24 17:53 Famotidine 20 Mg/1 Vial IV 03/26/24 17:31 20 mg STAT ONE Administration Famotidine Confirm 03/26/24 17:42 Famotidine 20 Mg/1 Vial Administered 03/26/24 17:43 Dose 20 mg IV .STK-MED ONE Sodium Chloride 1,000 mls @ 999 mls/hr 03/26/24 17:30 03/26/24 18:59 Sodium Chloride 0.9% 1000 Ml IV 03/26/24 18:30 Infused .Q1H1M STA Infusion Sodium Chloride Confirm 03/26/24 17:43 Sodium Chloride 0.9% 1000 Ml Administered 03/26/24 17:44 Dose 1,000 mls @ ud .ROUTE .STK-MED ONE Lidocaine HCl Confirm 03/26/24 17:42 Lidocaine Hcl 2% Viscous 15 Ml Udcup Administered 03/26/24 17:43 Dose 15 ml .ROUTE .STK-MED ONE Magnesium Hydroxide 45 ml 03/26/24 17:30 03/26/24 17:56 Mag Hydrx/Alum Hyd/Simeth/Lido 45 Ml Bottle PO 03/26/24 17:31 45 ml STAT ONE Administration Ondansetron HCl 4 mg 03/26/24 18:01 03/26/24 18:02 Ondansetron Hcl 4 Mg/2 Ml Vial IV 03/26/24 18:02 4 mg STAT ONE Administration Ondansetron HCl Confirm 03/26/24 18:02 Ondansetron Hcl 4 Mg/2 Ml Vial Administered 03/26/24 18:03 Dose 4 mg .ROUTE .STK-MED ONE Lab/Rad Data: Laboratory Result Diagrams 03/26/24 17:55 03/26/24 17:55 Laboratory Results 03/26/24 03/26/24 03/26/24 Range/Units 18:53 18:41 17:55 WBC (3.98-10.04) x10^3/uL RBC (3.93-5.22) x10^6/uL Hgb (11.2-15.7) g/dL Hct (34.1-44.9) % MCV (79.4-94.8) fL MCH (25.6-32.2) pg MCHC (32.2-35.5) g/dL RDW (11.7-14.4) % Plt Count (182-369) x10^3/uL MPV (9.4-12.3) fL Gran % (34.0-71.1) % Immature Gran % (Auto) (0.001-0.429) % Nucleat RBC Rel Count (0.00-0.2) % Eos # (Auto) (0.04-0.36) x10^3/uL Immature Gran # (Auto) (0.001-0.031) x10^3u/L Absolute Lymphs (auto) (1.18-3.74) x10^3/uL Absolute Monos (auto) (0.24-0.86) x10^3/uL Absolute Nucleated RBC (0.00-0.012) x10^3u/L Lymphocytes % (19.3-51.7) % Monocytes % (4.7-12.5) % Eosinophils % (0.7-5.8) % Basophils % (0.1-1.2) % Absolute Granulocytes (1.56-6.13) x10^3/uL Basophils # (0.01-0.08) x10^3/uL Sodium 141 (135-145) mmol/L Potassium 4.0 (3.5-5.1) mmol/L Chloride 112 H (98-107) mmol/L Carbon Dioxide 22 (22-30) mmol/L Anion Gap 10.9 (5-15) MEQ/L BUN 12 (7-17) mg/dL Creatinine 0.90 (0.52-1.04) mg/dL Estimated GFR 90.4 ML/MIN Glucose 92 (74-106) mg/dL Calcium 9.0 (8.4-10.2) mg/dL Total Bilirubin 0.40 (0.2-1.3) mg/dL AST 27 (14-36) U/L ALT 35 (0-35) U/L Alkaline Phosphatase 47 (38-126) U/L Serum Total Protein 6.8 (6.3-8.2) g/dL Albumin 3.8 (3.5-5.0) g/dL Lipase 86 (23-300) U/L Urine Color Yellow (Yellow) Urine Appearance Clear (Clear) Urine pH 6.0 (4.6-8.0) Ur Specific [place] 1.020 (1.005-1.030) Urine Protein Negative (Negative) Urine Glucose (UA) Negative (Negative) mg/dL Urine Ketones Negative (Negative) Urine Blood Negative (Negative) Urine Nitrite Negative (Negative) Urine Bilirubin Negative (Negative) Urine Urobilinogen 0.2 (0.2) mg/dL Ur Leukocyte Esterase Negative (Negative) U Hyaline Cast (Auto) NONE SEEN (0-2) /LPF Urine Microscopic RBC 0-2 (0-5) /HPF Urine Microscopic WBC 0-2 (0-5) /HPF Ur Epithelial Cells Rare (None Seen) /HPF Urine Bacteria None Seen (None Seen) /HPF Urine Culture Reflexed NO (NO) Urine HCG, Qual NEGATIVE (NEGATIVE) 03/26/24 Range/Units 17:55 WBC 7.5 (3.98-10.04) x10^3/uL RBC 4.55 (3.93-5.22) x10^6/uL Hgb 12.6 (11.2-15.7) g/dL Hct 37.4 (34.1-44.9) % MCV 82.2 (79.4-94.8) fL MCH 27.7 (25.6-32.2) pg MCHC 33.7 (32.2-35.5) g/dL RDW 12.1 (11.7-14.4) % Plt Count 357 (182-369) x10^3/uL MPV 9.3 L (9.4-12.3) fL Gran % 59.2 (34.0-71.1) % Immature Gran % (Auto) 0.1 (0.001-0.429) % Nucleat RBC Rel Count 0.0 (0.00-0.2) % Eos # (Auto) 0.25 (0.04-0.36) x10^3/uL Immature Gran # (Auto) 0.01 (0.001-0.031) x10^3u/L Absolute Lymphs (auto) 2.16 (1.18-3.74) x10^3/uL Absolute Monos (auto) 0.58 (0.24-0.86) x10^3/uL Absolute Nucleated RBC 0.00 (0.00-0.012) x10^3u/L Lymphocytes % 28.6 (19.3-51.7) % Monocytes % 7.7 (4.7-12.5) % Eosinophils % 3.3 (0.7-5.8) % Basophils % 1.1 (0.1-1.2) % Absolute Granulocytes 4.46 (1.56-6.13) x10^3/uL Basophils # 0.08 (0.01-0.08) x10^3/uL Sodium (135-145) mmol/L Potassium (3.5-5.1) mmol/L Chloride (98-107) mmol/L Carbon Dioxide (22-30) mmol/L Anion Gap (5-15) MEQ/L BUN (7-17) mg/dL Creatinine (0.52-1.04) mg/dL Estimated GFR ML/MIN Glucose (74-106) mg/dL Calcium (8.4-10.2) mg/dL Total Bilirubin (0.2-1.3) mg/dL AST (14-36) U/L ALT (0-35) U/L Alkaline Phosphatase (38-126) U/L Serum Total Protein (6.3-8.2) g/dL Albumin (3.5-5.0) g/dL Lipase (23-300) U/L Urine Color (Yellow) Urine Appearance (Clear) Urine pH (4.6-8.0) Ur Specific [place] (1.005-1.030) Urine Protein (Negative) Urine Glucose (UA) (Negative) mg/dL Urine Ketones (Negative) Urine Blood (Negative) Urine Nitrite (Negative) Urine Bilirubin (Negative) Urine Urobilinogen (0.2) mg/dL Ur Leukocyte Esterase (Negative) U Hyaline Cast (Auto) (0-2) /LPF Urine Microscopic RBC (0-5) /HPF Urine Microscopic WBC (0-5) /HPF Ur Epithelial Cells (None Seen) /HPF Urine Bacteria (None Seen) /HPF Urine Culture Reflexed (NO) Urine HCG, Qual (NEGATIVE) - Progress Progress: improved Progress Note: 03/26/24 19:38 28 years old is evaluated for off-and-on upper abdominal pain for last few months, on nausea vomiting diarrhea for last 4 days. She does not have any abdominal tenderness at all. Given fluids and symptomatic treatment with Tylenol, Zofran, GI cocktail and Pepcid, on reevaluation she is pain/symptom- free. Workup showed normal white count, fairly unremarkable chemistries, normal lipase and no UTI. I do not think patient needs CT imaging as I believe patient has viral gastroenteritis and some element of GERD symptoms and chronic symptoms are possibly secondary to adhesions from cholecystectomy.. I would start her on Protonix and recommended taking Tylenol as needed and to avoid NSAIDs. Discussed signs symptoms of worsening needing return to ER which she seems understanding. Stable for discharge. Counseled pt/family regarding: lab results, diagnosis, need for follow-up, rad results Medical Desision Making - Independent Historian Additional History obtained from: Spouse - Diagnostic Testing Diagnostic test were ordered, analyzed, and reviewed by me: Yes - Risk of complications The pt has a mod risk of morbidity or mortality based on: Need for prescription drug management - Departure Departure Disposition: Home Clinical Impression: GERD with esophagitis, Viral gastroenteritis Condition: Stable Critical Care Time: No Referrals: LAURENT AKBAR NP [Primary Care Provider] - Follow up with PCP 1 day Instructions: Severe Abdominal Pain, Adult (DC) Additional Instructions: Take Tylenol as needed. Follow-up with primary care for reevaluation. Return to ER for intractable pain/vomiting/fever chills etc. Prescriptions: PANTOPRAZOLE 40 mg Tablet [Protonix 40MG Tablet] 40 mg PO QAM #30 tab Ondansetron ODT 4 MG [Zofran Odt 4 mg] 1 ea PO QIDPRN PRN #7 tablet PRN Reason: n/v
[2024-03-26] MEDS ORDERED: TYLENOL 325 MG ONE (17:42)
[2024-03-26] MEDS ORDERED: XYLOCAINE VISCOUS 2% 15 ML CUP ONE (17:42)
[2024-03-26] MEDS ORDERED: Pepcid 20 MG VIAL IV ONE (17:42)
[2024-03-26] MEDS ORDERED: MAALOX ES 30 ML UNIT DOSE ONE (17:42)
[2024-03-26] MEDS ORDERED: Sodium Chloride 0.9% 1000 ML 1,000 ML ONE (17:43)
[2024-03-26] MEDS: Sodium Chloride 0.9% 1000 ML 1,000 ML IV STA (17:50)
[2024-03-26] MEDS: Pepcid 20 MG VIAL IV ONE (17:53)
[2024-03-26] MEDS: TYLENOL 325 MG PO ONE (17:54)
[2024-03-26] MEDS: GI COCKTAIL 45 ML (Maalox/Lidocaine) PO ONE (17:56)
[2024-03-26 17:58] LABS: Absolute Neutrophil Ct (ANC) 4.46 x10^3/uL (1.56-6.13); BASOPHIL % 1.1 % (0.1-1.2); Basophil (Absolute #) 0.08 x10^3/uL (0.01-0.08); Eosinophil % 3.3 % (0.7-5.8); Eosinophil (Absolute #) 0.25 x10^3/uL (0.04-0.36); Hematocrit 37.4 % (34.1-44.9); Hemoglobin 12.6 g/dL (11.2-15.7); IMMATURE GRAN # 0.01 x10^3u/L (0.001-0.031); IMMATURE GRAN % 0.1 % (0.001-0.429); Lymphocyte (Absolute #) 2.16 x10^3/uL (1.18-3.74); Lymphocytes % 28.6 % (19.3-51.7); Mean Cell Volume 82.2 fL (79.4-94.8); Mean Corpuscular Hemoglobin 27.7 pg (25.6-32.2); Mean Corpuscular Hgb Concent. 33.7 g/dL (32.2-35.5); Mean Platelet Volume 9.3 fL (9.4-12.3); Monocyte (Absolute #) 0.58 x10^3/uL (0.24-0.86); Monocytes % 7.7 % (4.7-12.5); Neutrophil % 59.2 % (34.0-71.1); Platelet Count 357 x10^3/uL (182-369); Red Blood Count 4.55 x10^6/uL (3.93-5.22); Red Cell Distribution Width 12.1 % (11.7-14.4); White Blood Count 7.5 x10^3/uL (3.98-10.04)
[2024-03-26] MEDS: Zofran 4 MG/2 ML VIAL IV ONE (18:02)
[2024-03-26] MEDS ORDERED: Zofran 4 MG/2 ML VIAL ONE (18:02)
[2024-03-26 18:40] LABS: ALBUMIN 3.8 g/dL (3.5-5.0); ANION GAP 10.9 MEQ/L (5-15); BILIRUBIN,TOTAL 0.4 mg/dL (0.2-1.3); Creatinine 1 0.9 mg/dL (0.52-1.04); EST GLOMERULAR FILTRATION RATE 90.4 ML/MIN; Total Protein 6.8 g/dL (6.3-8.2)
[2024-03-26 18:53] LABS: HCG URINE TEST NEGATIVE (NEGATIVE)
[2024-03-26 19:07] LABS: Appearance Clear (Clear); Bacteria None Seen /HPF (None Seen); Bilirubin Negative (Negative); Blood Negative (Negative); Epithelial Cells Rare /HPF (None Seen); Glucose, Urine Negative (Negative); Hyaline Casts NONE SEEN /LPF (0-2); Ketones Negative (Negative); Leukocyte Esterase Negative (Negative); Nitrite Negative (Negative); Protein,Urine Dip Negative (Negative); RBC 0-2 /HPF (0-5); Urobilinogen 0.2 mg/dL (0.2); WBC 0-2 /HPF (0-5)
[2024-03-26 19:09] LABS: ADD URINE CULTURE? NO (NO)
[2024-03-26 19:18] VITALS: O2SAT 96
[2024-03-26 19:50] VITALS: BP 119/92; PULSE 88
== END 2024-03-26 19:54 | disposition home or self-care (01) ==
LOC: ED 16:59
DX: A08.4 Viral intestinal infection, unspecified (principal); K21.00 Gastro-esophageal reflux disease with esophagitis, without bleeding; R11.2 Nausea with vomiting, unspecified; R10.10 Upper abdominal pain, unspecified
CPT/HCPCS: 36000; 36415; 80053; 81001; 81025; 83690; 85025; 96374; 96375; 99284; J2405; A9270-GY

== ENCOUNTER 2024-05-29 20:07 | Emergency (ER) | payer OTHER ==
[2024-05-29 20:25] VITALS: RESP 18; TEMP 97.6
--- NOTE | 2024-05-29 20:38 | ERPHSYRPT ---
- History of Present Illness Time Seen by Provider: 05/29/24 20:30 Source: patient Exam Limitations: no limitations Patient Subjective Stated Complaint: pt states she thinks she hurt her rt leg playing with the dogs Triage Nursing Assessment: pt ambulated with ease into the er; pt is axo x4; c/o rt leg pain; pt states 6/10 to RLE; no redness or swelling present to RLE; strong rt pedal pulse; skin PDW; no respiratory distress present; vitals wnl Physician History: Pt states she tripped in her yard 3 days ago and started with right knee to right foot pain. Allergies/Adverse Reactions: Penicillins Allergy (Mild, Verified 05/29/24 20:14) Rash MOTHER ET FATHER ARE BOTH ALLERGIC SO WILL NOT TRY WITH CHILD kiwi Allergy (Verified 05/29/24 20:14) lazaro Allergy (Verified 05/29/24 20:14) Sulfa (Sulfonamide Antibiotics) Allergy (Verified 05/29/24 20:14) Rash Home Medications: Bupropion HCl 150 mg Sr [Wellbutrin SR 150 MG] 150 mg PO DAILY 05/29/24 [History] Buspirone HCl 5 mg [Buspar 5 mg] 10 mg PO DAILY 05/29/24 [History] Famotidine 20 mg [Pepcid 20 MG] 20 mg PO BID 05/29/24 [History] Trazodone HCl 50 mg [Desyrel 50 mg] 50 mg PO HS 05/29/24 [History] Hx Tetanus, Diphtheria Vaccination/Date Given: Yes Hx Influenza Vaccination/Date Given: No Hx Pneumococcal Vaccination/Date Given: No Travel Risk - International Travel Have you traveled outside of the country in past 3 weeks: No - Emerging Infectious Disease Are you exhibiting symptoms associated with any current EIDs: No Symptoms: Abdominal Pain - Review of Systems Musculoskeletal: Other (right knee - right foot pain) - Past Medical History Pertinent Past Medical History: No Neurological History: No Pertinent History ENT History: No Pertinent History Cardiac History: No Pertinent History Respiratory History: No Pertinent History Endocrine Medical History: No Pertinent History Musculoskeletal History: No Pertinent History GI Medical History: GERD History: No Pertinent History Psycho-Social History: Anxiety, Depression Female Reproductive Disorders: No Pertinent History Other Medical History: anemia - Past Surgical History Past Surgical History: Yes Neuro Surgical History: No Pertinent History Cardiac: No Pertinent History Respiratory: No Pertinent History Gastrointestinal: Cholecystectomy Genitourinary: No Pertinent History Musculoskeletal: No Pertinent History Female Surgical History: No Pertinent History, Dilation & Curettage Other Surgical History: wisdom tooth removal , colonoscopy, egd Significant Family History: no pertinent family hx - Female History Hx Last Menstrual Period: 05/29/24 Hx Now: No - Social History Smoking Status: Never smoker Exposure to second hand smoke: No Alcohol Use: None Drug Use: none Patient Lives Alone: No - Social Determinants of Health Will the patient participate in the screening: Yes Do you worry about a steady place to live?: No Do you have any problems with any of the following?: No known problems In the past 12 months,have you had to go without utilities?: No Transportation Issues: No Has anyone in your support network made you feel unsafe?: No Have you or anyone in your house had to go without enough: No - Nursing Vital Signs Nursing Vital Signs: Initial Vital Signs Blood Pressure 121/78 05/29/24 20:15 O2 Sat by Pulse Oximetry 98 05/29/24 20:15 Pain Scale Pain Intensity 6 - Physical Exam General Appearance: alert Hips Exam: right: normal range of motion Legs Exam: right leg: normal range of motion Knees Exam: right knee: normal range of motion, soft tissue tenderness (mild) Ankle Exam: right ankle: normal range of motion Foot Exam: right foot: normal range of motion, soft tissue tenderness (mild mid lateral tenderness) Neuro/Tendon Exam: normal sensation, normal motor functions Mental Status Exam: alert, cooperative Skin Exam: warm, dry SpO2 Interpretation: normal SpO2: 99 O2 Delivery: Room Air - Course Nursing assessment & vital signs reviewed: Yes - Radiology Exams Right Foot X-ray Interpretation: Discussed w/ radiologist, No Fracture Right Ankle X-ray Interpretation: Discussed w/ radiologist, No Fracture Right Lower Leg X-ray Interpretation: Discussed w/ radiologist, No Fracture Right Knee X-ray Interpretation: Discussed w/ radiologist, No Fracture Ordered Tests: Active Orders 24 hr Category Date Time Status ANKLE (3 VIEWS) Stat Exams 05/29/24 20:37 Completed FOOT (MINIMUM 3 VIEWS) Stat Exams 05/29/24 20:37 Completed KNEE (3 VIEWS) Stat Exams 05/29/24 20:36 Completed LOWER LEG Stat Exams 05/29/24 20:36 Completed Medication Summary Discontinued Medications Generic Name Dose Route Start Last Admin Trade Name Michael ESPINO Reason Stop Dose Admin Ibuprofen 600 mg 05/29/24 20:36 05/29/24 20:41 Ibuprofen 600 Mg Tablet PO 05/29/24 20:37 600 mg STAT ONE Administration Ibuprofen Confirm 05/29/24 20:39 Ibuprofen 600 Mg Tablet Administered 05/29/24 20:40 Dose 600 mg .ROUTE .STK-MED ONE - Progress Progress: unchanged Counseled pt/family regarding: diagnosis, need for follow-up, rad results Medical Desision Making - Diagnostic Testing Diagnostic test were ordered, analyzed, and reviewed by me: Yes Radiological Interpretation: Discussed w/ radiologist - Departure Departure Disposition: Home Clinical Impression: pain in right knee to right foot, Right foot sprain, Right knee sprain Condition: Stable Critical Care Time: No Referrals: LAURENT AKBAR NP [Primary Care Provider] - Follow up/PCP as directed Instructions: Foot Sprain (DC), Knee Sprain ED Additional Instructions: Follow up with private doctor tomorrow. Use crutches for ambulation. Caleb wrap to right knee & right ankle for the next 4 days. No weight bearing on right foot for the next 4 days. Elevate right foot above heart level for the next 24 hours. Forms: Work/School Release Form
[2024-05-29] MEDS ORDERED: MOTRIN 600 MG ONE (20:39)
[2024-05-29] MEDS: MOTRIN 600 MG PO ONE (20:41)
--- NOTE | 2024-05-29 22:26 | XRAY ---
Indication: Tripping injury. Comparison: None 2 view right lower leg demonstrates normal bones, articulations, and soft tissues.
--- NOTE | 2024-05-29 22:26 | XRAY ---
Indication: Tripping injury. Comparison: None 3 view right knee demonstrates normal bones, articulations, and soft tissues.
--- NOTE | 2024-05-29 22:26 | XRAY ---
Indication: Tripping injury. Comparison: September 06, 2018 3 view ankle again demonstrates tiny plantar heel spur. No new/acute bony, articular, or soft tissue abnormalities
--- NOTE | 2024-05-29 22:28 | XRAY ---
Indication: Tripping injury. Comparison: None 3 nonweightbearing views right foot demonstrates tiny plantar heel spur. No other bony, articular, or soft tissue abnormalities.
[2024-05-29 22:47] VITALS: O2SAT 99
[2024-05-29 23:09] VITALS: BP 113/78; PULSE 85
== END 2024-05-29 23:13 | disposition home or self-care (01) ==
LOC: ED 20:07
DX: S83.91XA Sprain of unspecified site of right knee, initial encounter (principal); S93.601A Unspecified sprain of right foot, initial encounter; W18.40XA Slipping, tripping and stumbling without falling, unspecified, initial encounter; Y92.007 Garden or yard of unspecified non-institutional (private) residence as the place of occurrence of the external cause; M25.561 Pain in right knee; M79.671 Pain in right foot; M79.661 Pain in right lower leg; Z79.899 Other long term (current) drug therapy
CPT/HCPCS: 73562; 73590; 73610; 73630; 99283; A9270-GY

== ENCOUNTER 2024-10-19 22:18 | Emergency (ER) | payer MEDICAID ==
[2024-10-19 22:27] VITALS: TEMP 97
--- NOTE | 2024-10-19 22:31 | ERPHSYRPT ---
- History of Present Illness Time Seen by Provider: 10/19/24 22:31 Source: patient Exam Limitations: no limitations Physician History: The patient is a 29 year old with gestational hypertension who presents with cramping and spotting. at 18w 6d, Dr. Conde is OB Cramping has been occurring intermittently over the past couple of days, described as 'off and on.' Spotting began approximately 45 minutes prior to the consultation. No recent sexual intercourse in the last 24 hours. This is their second . They had a miscarriage during their first , which occurred very early, before they were aware of the . Blood pressure was 155/104 when they first became , for which they were prescribed labetalol. They are not taking aspirin daily. They experience burning during urination. They mention having persistent back pain, which they attribute to 'blobs,' but state that it does not bother them significantly. Timing/Duration: yesterday Activites at Onset: none Quality: cramping Onset Location: suprapubic Pain Radiation: none Severity of Pain-Max: mild Severity of Pain-Current: mild Prior abdominal problems: none Modifying Factors: Improves With: nothing Associated Symptoms: dysuria, , No fever, No chills, No nausea, No vomiting Allergies/Adverse Reactions: kiwi Allergy (Verified 10/19/24 22:38) lazaro Allergy (Verified 10/19/24 22:38) Sulfa (Sulfonamide Antibiotics) Allergy (Verified 10/19/24 22:38) Rash Home Medications: Bupropion HCl 150 mg Sr [Wellbutrin SR 150 MG] 150 mg PO HS 05/29/24 [H istory] Famotidine 20 mg [Pepcid 20 MG] 20 mg PO BID 05/29/24 [History] Pnv No.103/Folic/Om3s/Fish Oil [ Gummies] 1 tab PO HS 10/19/24 [History] Hx Tetanus, Diphtheria Vaccination/Date Given: Yes Hx Influenza Vaccination/Date Given: No Hx Pneumococcal Vaccination/Date Given: No Travel Risk - Emerging Infectious Disease Are you exhibiting symptoms associated with any current EIDs: No Symptoms: Abdominal Pain - Review of Systems All Other Systems: Reviewed and Negative - Past Medical History Pertinent Past Medical History: No Neurological History: No Pertinent History ENT History: No Pertinent History Cardiac History: No Pertinent History Respiratory History: No Pertinent History Endocrine Medical History: No Pertinent History Musculoskeletal History: No Pertinent History GI Medical History: GERD History: No Pertinent History Psycho-Social History: Anxiety, Depression Female Reproductive Disorders: No Pertinent History Other Medical History: anemia - Past Surgical History Past Surgical History: Yes Neuro Surgical History: No Pertinent History Cardiac: No Pertinent History Respiratory: No Pertinent History Gastrointestinal: Cholecystectomy Genitourinary: No Pertinent History Musculoskeletal: No Pertinent History Female Surgical History: No Pertinent History, Dilation & Curettage Other Surgical History: wisdom tooth removal , colonoscopy, egd Significant Family History: no pertinent family hx - Female History Hx Last Menstrual Period: 05/29/24 - Social History Smoking Status: Never smoker Exposure to second hand smoke: No Alcohol Use: None Drug Use: none Patient Lives Alone: No - Social Determinants of Health Will the patient participate in the screening: Yes Do you worry about a steady place to live?: No In the past 12 months,have you had to go without utilities?: No Transportation Issues: No Has anyone in your support network made you feel unsafe?: No Have you or anyone in your house had to go without enough: No - Nursing Vital Signs Nursing Vital Signs: Initial Vital Signs Temperature 97.0 F 10/19/24 22:26 Pulse Rate 90 10/19/24 22:26 Respiratory Rate 18 10/19/24 22:26 Blood Pressure 128/79 10/19/24 22:26 O2 Sat by Pulse Oximetry 97 10/19/24 22:26 Pain Scale Pain Intensity 4 - Physical Exam General Appearance: no apparent distress Gastrointestinal/Abdomen Exam: soft, other (gravid), No tenderness, No distention, No mass, No guarding, No rebound Neurologic Exam: alert, oriented x 3, cooperative Skin Exam: normal color, warm, dry, No rash SpO2 Interpretation: normal SpO2: 97 O2 Delivery: Room Air Comments: 10/19/24 22:54 T 132 - Course Nursing assessment & vital signs reviewed: Yes Ordered Tests: Active Orders 24 hr Category Date Time Status IV Insertion STAT Care 10/19/24 22:31 Active CBC W DIFF Stat Lab 10/19/24 22:42 Completed CMP Stat Lab 10/19/24 22:42 Completed CULTURE,URINE Stat Lab 10/19/24 22:44 Received UA W/RFX UR CULTURE Stat Lab 10/19/24 22:44 Completed Medication Summary Generic Name Dose Route Start Last Admin Trade Name Michael PRN Reason Stop Dose Admin Sodium Chloride 1,000 mls @ 999 mls/hr 10/19/24 22:31 10/19/24 22:53 Sodium Chloride 0.9% 1000 Ml IV 10/19/24 23:31 999 mls/hr .Q1H1M STA Administration Discontinued Medications Generic Name Dose Route Start Last Admin Trade Name Michael PRN Reason Stop Dose Admin Acetaminophen 975 mg 10/19/24 22:31 10/19/24 22:52 Acetaminophen 325 Mg Tablet PO 10/19/24 22:32 975 mg STAT ONE Administration Acetaminophen Confirm 10/19/24 22:50 Acetaminophen 325 Mg Tablet Administered 10/19/24 22:51 Dose 975 mg .ROUTE .STK-MED ONE Sodium Chloride Confirm 10/19/24 22:50 Sodium Chloride 0.9% 1000 Ml Administered 10/19/24 22:51 Dose 1,000 mls @ ud .ROUTE .STK-MED ONE Nitrofurantoin Macrocrystals 100 mg 10/19/24 23:00 10/19/24 23:09 Nitrofurantoin Macro 100 Mg Capsule PO 10/19/24 23:01 100 mg STAT ONE Administration Nitrofurantoin Macrocrystals Confirm 10/19/24 23:08 Nitrofurantoin Macro 100 Mg Capsule Administered 10/19/24 23:09 Dose 100 mg .ROUTE .STK-MED ONE Lab/Rad Data: Laboratory Result Diagrams 10/19/24 22:42 10/19/24 22:42 Laboratory Results 10/19/24 10/19/24 10/19/24 Range/Units 22:44 22:42 22:42 WBC 9.8 (3.98-10.04) x10^3/uL RBC 4.00 (3.93-5.22) x10^6/uL Hgb 11.5 (11.2-15.7) g/dL Hct 33.1 L (34.1-44.9) % MCV 82.8 (79.4-94.8) fL MCH 28.8 (25.6-32.2) pg MCHC 34.7 (32.2-35.5) g/dL RDW 13.2 (11.7-14.4) % Plt Count 237 (182-369) x10^3/uL MPV 9.9 (9.4-12.3) fL Gran % 67.3 (34.0-71.1) % Immature Gran % (Auto) 0.3 (0.001-0.429) % Nucleat RBC Rel Count 0.0 (0.00-0.2) % Eos # (Auto) 0.23 (0.04-0.36) x10^3/uL Immature Gran # (Auto) 0.03 (0.001-0.031) x10^3u/L Absolute Lymphs (auto) 1.97 (1.18-3.74) x10^3/uL Absolute Monos (auto) 0.90 H (0.24-0.86) x10^3/uL Absolute Nucleated RBC 0.00 (0.00-0.012) x10^3u/L Lymphocytes % 20.1 (19.3-51.7) % Monocytes % 9.2 (4.7-12.5) % Eosinophils % 2.4 (0.7-5.8) % Basophils % 0.7 (0.1-1.2) % Absolute Granulocytes 6.58 H (1.56-6.13) x10^3/uL Basophils # 0.07 (0.01-0.08) x10^3/uL Sodium 136 (135-145) mmol/L Potassium 3.7 (3.5-5.1) mmol/L Chloride 111 H (98-107) mmol/L Carbon Dioxide 18 L (22-30) mmol/L Anion Gap 10.5 (5-15) MEQ/L BUN 4 L (7-17) mg/dL Creatinine 0.56 (0.52-1.04) mg/dL Estimated GFR 128.2 ML/MIN Glucose 100 (74-106) mg/dL Calcium 8.4 (8.4-10.2) mg/dL Total Bilirubin 0.20 (0.2-1.3) mg/dL AST 47 H (14-36) U/L ALT 38 H (0-35) U/L Alkaline Phosphatase 44 (38-126) U/L Serum Total Protein 6.4 (6.3-8.2) g/dL Albumin 3.5 (3.5-5.0) g/dL Urine Color Yellow (Yellow) Urine Appearance Cloudy A (Clear) Urine pH 6.5 (4.6-8.0) Ur Specific [place] 1.025 (1.005-1.030) Urine Protein Trace A (Negative) Urine Glucose (UA) Negative (Negative) mg/dL Urine Ketones Trace A (Negative) Urine Blood Moderate A (Negative) Urine Nitrite Negative (Negative) Urine Bilirubin Negative (Negative) Urine Urobilinogen 1.0 A (0.2) mg/dL Ur Leukocyte Esterase Moderate A (Negative) U Hyaline Cast (Auto) NONE SEEN (0-2) /LPF Urine Microscopic RBC 11-20 A (0-5) /HPF Urine Microscopic WBC >100 A (0-5) /HPF Ur Epithelial Cells Many A (None Seen) /HPF Urine Bacteria Moderate A (None Seen) /HPF Urine Culture Reflexed YES (NO) - Progress Progress: unchanged Air Movement: good Progress Note: 10/19/24 22:54 Vaginal spotting and cramping Experiencing vaginal spotting and cramping for the past couple of days, with spotting starting approximately 45 minutes prior to consultation. No recent sexual intercourse. Differential diagnosis includes early complications such as threatened miscarriage or implantation bleeding, considering previous miscarriage and current . - CBC, CMP, T&S, UA Hypertension in Hypertension with initial blood pressure of 155/104 mmHg during early . Currently on labetalol. Not taking daily aspirin, which is recommended to reduce preeclampsia risk in high-risk pregnancies. - Repeat blood pressure check - Discuss initiation of daily aspirin therapy FHT 132 on initial evaluation today 10/19/24 23:02 UA shows UTI, will treat with Macrobid. Blood Culture(s) Obtained: No Antibiotics given: No Counseled pt/family regarding: lab results, diagnosis, need for follow-up Medical Desision Making - Diagnostic Testing Diagnostic test were ordered, analyzed, and reviewed by me: Yes Radiological Interpretation: Interpreted by me - Risk of complications The pt has a mod risk of morbidity or mortality based on: Need for prescription drug management - Departure Departure Disposition: Home Clinical Impression: UTI in , Dehydration during Condition: Good Critical Care Time: No Referrals: LAURENT AKBAR NP [Primary Care Provider] - Follow up/PCP as directed Instructions: Urinary tract infections in Prescriptions: Nitrofurantoin Macro 100 mg [Macrobid 100MG Capsule] 100 mg PO BID 5 Days #9 cap
[2024-10-19] MEDS ORDERED: Sodium Chloride 0.9% 1000 ML 1,000 ML ONE (22:50)
[2024-10-19] MEDS ORDERED: TYLENOL 325 MG ONE (22:50)
[2024-10-19] MEDS: TYLENOL 325 MG PO ONE (22:52)
[2024-10-19 22:53] LABS: Absolute Neutrophil Ct (ANC) 6.58 x10^3/uL (1.56-6.13); BASOPHIL % 0.7 % (0.1-1.2); Basophil (Absolute #) 0.07 x10^3/uL (0.01-0.08); Eosinophil % 2.4 % (0.7-5.8); Eosinophil (Absolute #) 0.23 x10^3/uL (0.04-0.36); Hematocrit 33.1 % (34.1-44.9); Hemoglobin 11.5 g/dL (11.2-15.7); IMMATURE GRAN # 0.03 x10^3u/L (0.001-0.031); IMMATURE GRAN % 0.3 % (0.001-0.429); Lymphocyte (Absolute #) 1.97 x10^3/uL (1.18-3.74); Lymphocytes % 20.1 % (19.3-51.7); Mean Cell Volume 82.8 fL (79.4-94.8); Mean Corpuscular Hemoglobin 28.8 pg (25.6-32.2); Mean Corpuscular Hgb Concent. 34.7 g/dL (32.2-35.5); Mean Platelet Volume 9.9 fL (9.4-12.3); Monocytes % 9.2 % (4.7-12.5); Neutrophil % 67.3 % (34.0-71.1); Platelet Count 237 x10^3/uL (182-369); Red Cell Distribution Width 13.2 % (11.7-14.4); White Blood Count 9.8 x10^3/uL (3.98-10.04)
[2024-10-19] MEDS: Sodium Chloride 0.9% 1000 ML 1,000 ML IV STA (22:53)
[2024-10-19 22:59] LABS: Appearance Cloudy (Clear); Bacteria Moderate /HPF (None Seen); Bilirubin Negative (Negative); Blood Moderate (Negative); Epithelial Cells Many /HPF (None Seen); Glucose, Urine Negative (Negative); Hyaline Casts NONE SEEN /LPF (0-2); Ketones Trace (Negative); Leukocyte Esterase Moderate (Negative); Nitrite Negative (Negative); Ph 6.5 (4.6-8.0); Protein,Urine Dip Trace (Negative); Specific Gravity 1.025 (1.005-1.030); WBC >100 /HPF (0-5)
[2024-10-19 23:08] LABS: ALBUMIN 3.5 g/dL (3.5-5.0); ANION GAP 10.5 MEQ/L (5-15); BILIRUBIN,TOTAL 0.2 mg/dL (0.2-1.3); Calcium 8.4 mg/dL (8.4-10.2); Creatinine 1 0.56 mg/dL (0.52-1.04); EST GLOMERULAR FILTRATION RATE 128.2 ML/MIN; Potassium 3.7 mmol/L (3.5-5.1); Total Protein 6.4 g/dL (6.3-8.2)
[2024-10-19] MEDS ORDERED: Macrobid 100MG Capsule ONE (23:08)
[2024-10-19] MEDS: Macrobid 100MG Capsule PO ONE (23:09)
[2024-10-19 23:32] LABS: ABO TYPING O; Antibody Screen NEGATIVE (NEGATIVE); RH TYPING POSITIVE
[2024-10-19 23:42] VITALS: BP 116/82; PULSE 87; RESP 18; O2SAT 98
== END 2024-10-19 23:39 | disposition home or self-care (01) ==
LOC: ED 22:18
DX: O23.42 Unspecified infection of urinary tract in pregnancy, second trimester (principal); N39.0 Urinary tract infection, site not specified; O26.852 Spotting complicating pregnancy, second trimester; O13.2 Gestational [pregnancy-induced] hypertension without significant proteinuria, second trimester; E86.0 Dehydration; Z3A.18 18 weeks gestation of pregnancy; Z79.899 Other long term (current) drug therapy
CPT/HCPCS: 36415; 80053; 81001; 85025; 86850; 86900; 86901; 87086; 99283; 99284; A9270-GY

== ENCOUNTER 2024-10-28 18:43 | Emergency (ER) | payer OTHER | END 2024-10-28 20:48 | disposition left against medical advice (07) | LOC: ED 18:43 | DX: Z53.21 Procedure and treatment not carried out due to patient leaving prior to being seen by health care provider (principal) ==

== ENCOUNTER 2024-12-10 14:33 | Observation (INO) | payer OTHER ==
[2024-12-10 15:21] VITALS: BP 117/77; PULSE 83; RESP 18; TEMP 98.7
== END 2024-12-10 15:47 | disposition home or self-care (01) ==
LOC: OB 14:33
PROVIDERS: ADMIT Obstetrics & Gynecology; ATTEND Obstetrics & Gynecology
DX: Z34.82 Encounter for supervision of other normal pregnancy, second trimester (principal); Z3A.26 26 weeks gestation of pregnancy

== ENCOUNTER 2025-01-15 14:07 | Observation (INO) | payer OTHER ==
[2025-01-15 15:42] VITALS: BP 110/76; PULSE 88; O2SAT 98
[2025-01-15 16:38] LABS: Appearance Clear (Clear); Bacteria None Seen /HPF (None Seen); Bilirubin Negative (Negative); Blood Negative (Negative); Epithelial Cells Rare /HPF (None Seen); Glucose, Urine Negative (Negative); Hyaline Casts NONE SEEN /LPF (0-2); Ketones Negative (Negative); Leukocyte Esterase Small (Negative); Nitrite Negative (Negative); Protein,Urine Dip Negative (Negative); RBC 0-2 /HPF (0-5)
[2025-01-15 17:49] VITALS: TEMP 98.4
== END 2025-01-15 17:25 | disposition home or self-care (01) ==
LOC: OB 14:07
PROVIDERS: ADMIT Obstetrics & Gynecology; ATTEND Obstetrics & Gynecology
DX: Z34.83 Encounter for supervision of other normal pregnancy, third trimester (principal); Z3A.31 31 weeks gestation of pregnancy
CPT/HCPCS: 81001; G0378; G0379

== ENCOUNTER 2025-01-17 01:26 | Emergency (ER) | payer OTHER ==
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
[2025-01-17 02:14] VITALS: TEMP 97.6
[2025-01-17 02:36] LABS: Absolute Neutrophil Ct (ANC) 7.49 x10^3/uL (1.56-6.13); BASOPHIL % 0.6 % (0.1-1.2); Basophil (Absolute #) 0.07 x10^3/uL (0.01-0.08); Eosinophil % 1.8 % (0.7-5.8); Eosinophil (Absolute #) 0.21 x10^3/uL (0.04-0.36); Hematocrit 32.2 % (34.1-44.9); Hemoglobin 10.8 g/dL (11.2-15.7); IMMATURE GRAN # 0.04 x10^3u/L (0.001-0.031); IMMATURE GRAN % 0.3 % (0.001-0.429); Lymphocyte (Absolute #) 2.84 x10^3/uL (1.18-3.74); Lymphocytes % 24.4 % (19.3-51.7); Mean Cell Volume 83.2 fL (79.4-94.8); Mean Corpuscular Hemoglobin 27.9 pg (25.6-32.2); Mean Corpuscular Hgb Concent. 33.5 g/dL (32.2-35.5); Mean Platelet Volume 10.2 fL (9.4-12.3); Monocytes % 8.6 % (4.7-12.5); Neutrophil % 64.3 % (34.0-71.1); Platelet Count 226 x10^3/uL (182-369); Red Blood Count 3.87 x10^6/uL (3.93-5.22); Red Cell Distribution Width 12.4 % (11.7-14.4); White Blood Count 11.7 x10^3/uL (3.98-10.04)
[2025-01-17 02:47] LABS: Appearance Clear (Clear); Bacteria Rare /HPF (None Seen); Bilirubin Negative (Negative); Blood Negative (Negative); Epithelial Cells Rare /HPF (None Seen); Glucose, Urine Negative (Negative); Hyaline Casts NONE SEEN /LPF (0-2); Ketones Negative (Negative); Leukocyte Esterase Large (Negative); Nitrite Negative (Negative); Protein,Urine Dip Negative (Negative); RBC 0-2 /HPF (0-5); Specific Gravity <=1.005 (1.005-1.030); Urobilinogen 0.2 mg/dL (0.2)
[2025-01-17 02:58] LABS: ALBUMIN 3.2 g/dL (3.5-5.0); ALKALINE PHOSPHATASE 87 U/L (38-126); ANION GAP 12.9 MEQ/L (5-15); BLOOD UREA NITROGEN 6 mg/dL (7-17); CHLORIDE 110 mmol/L (98-107); Calcium 8.4 mg/dL (8.4-10.2); Carbon Dioxide 18 mmol/L (22-30); Creatinine 1 0.55 mg/dL (0.52-1.04); EST GLOMERULAR FILTRATION RATE 128.8 ML/MIN; Glucose 85 mg/dL (74-106); NT PRO BNPII < 20.0 pg/mL (<300); Potassium 3.8 mmol/L (3.5-5.1); SGOT/AST 20 U/L (14-36); SGPT/ALT 13 U/L (0-35); SODIUM 137 mmol/L (135-145); Total Protein 5.9 g/dL (6.3-8.2)
[2025-01-17 04:52] VITALS: O2SAT 99
[2025-01-17 05:06] VITALS: BP 120/80; PULSE 84; RESP 27
[2025-01-17] MEDS ORDERED: KEFLEX 500 MG ONE (05:08)
[2025-01-17] MEDS: KEFLEX 500 MG PO ONE (05:09)
--- NOTE | 2025-01-17 07:16 | XRAY ---
Indication: Bilateral leg swelling and syncope. Two-dimensional sonogram and color Doppler imaging major venous vessels left and right leg performed. Comparison: None No thrombus seen in the examined deep venous vessels left and right leg including greater saphenous vein. Veins demonstrate normal compressibility. Venous waveforms are normal with and without augmentation. Impression: Left and right legs negative for DVT. Comment: Preliminary report was given.
== END 2025-01-17 05:10 | disposition home or self-care (01) ==
LOC: ED 01:26
DX: R55 Syncope and collapse (principal); O23.43 Unspecified infection of urinary tract in pregnancy, third trimester; N39.0 Urinary tract infection, site not specified; Z3A.31 31 weeks gestation of pregnancy; Z79.899 Other long term (current) drug therapy
CPT/HCPCS: 36415; 80053; 81001; 83605; 83880; 84484; 84702; 85025; 87086; 93005; 93970; 99284; 99285; A9270-GY

== ENCOUNTER 2025-02-03 10:56 | Emergency (ER) | payer OTHER ==
[2025-02-03 00:19] LABS: Appearance Cloudy (Clear); Bacteria None Seen /HPF (None Seen); Bilirubin Small (Negative); Blood Negative (Negative); Epithelial Cells Many /HPF (None Seen); Glucose, Urine Negative (Negative); Ketones >=160 (Negative); Leukocyte Esterase Trace (Negative); Nitrite Negative (Negative); Ph 6.5 (4.6-8.0); Protein,Urine Dip 30 (Negative); RBC 0-2 /HPF (0-5); Specific Gravity >=1.030 (1.005-1.030)
[2025-02-03] MEDS: Lactated Ringers 1,000 ML IV ONE (00:36)
[2025-02-03] MEDS: ZOLOFT 50 MG TABLET PO SCH (01:21)
[2025-02-03] MEDS: ZOFRAN ODT 4 MG PO PRN (01:21)
[2025-02-03] MEDS: Lactated Ringers 1,000 ML IV SCH (01:56)
[2025-02-03 04:59] VITALS: TEMP 98.7
[2025-02-03 08:29] LABS: Amphetamine,Urine NEGATIVE (NEGATIVE); Barbiturate,Urine NEGATIVE (NEGATIVE); Benzodiazepine,Urine NEGATIVE (NEGATIVE); Cocaine,Urine NEGATIVE (NEGATIVE); Methadone,Urine NEGATIVE (NEGATIVE); Opiate,Urine NEGATIVE (NEGATIVE); PCP,Urine NEGATIVE (NEGATIVE); THC,Urine NEGATIVE (NEGATIVE)
[2025-02-03 08:41] LABS: Appearance Clear (Clear); Bacteria None Seen /HPF (None Seen); Bilirubin Negative (Negative); Blood Negative (Negative); Epithelial Cells None Seen /HPF (None Seen); Glucose, Urine Negative (Negative); Hyaline Casts NONE SEEN /LPF (0-2); Ketones Trace (Negative); Leukocyte Esterase Negative (Negative); Nitrite Negative (Negative); Protein,Urine Dip Negative (Negative); RBC 0-2 /HPF (0-5); Specific Gravity <=1.005 (1.005-1.030); Urobilinogen 0.2 mg/dL (0.2); WBC 0-2 /HPF (0-5)
[2025-02-03 08:45] LABS: ALBUMIN 2.9 g/dL (3.5-5.0); ANION GAP 13.3 MEQ/L (5-15); BILIRUBIN,TOTAL 0.3 mg/dL (0.2-1.3); Calcium 8.5 mg/dL (8.4-10.2); Creatinine 1 0.55 mg/dL (0.52-1.04); EST GLOMERULAR FILTRATION RATE 128.8 ML/MIN; Potassium 3.9 mmol/L (3.5-5.1); Total Protein 5.5 g/dL (6.3-8.2)
[2025-02-03 11:32] LABS: Absolute Neutrophil Ct (ANC) 5.56 x10^3/uL (1.56-6.13); BASOPHIL % 0.5 % (0.1-1.2); Basophil (Absolute #) 0.05 x10^3/uL (0.01-0.08); Eosinophil (Absolute #) 0.09 x10^3/uL (0.04-0.36); Hematocrit 29.8 % (34.1-44.9); Hemoglobin 9.9 g/dL (11.2-15.7); IMMATURE GRAN # 0.02 x10^3u/L (0.001-0.031); IMMATURE GRAN % 0.2 % (0.001-0.429); Lymphocyte (Absolute #) 2.62 x10^3/uL (1.18-3.74); Lymphocytes % 28.7 % (19.3-51.7); Mean Corpuscular Hemoglobin 27.6 pg (25.6-32.2); Mean Corpuscular Hgb Concent. 33.2 g/dL (32.2-35.5); Mean Platelet Volume 11.7 fL (9.4-12.3); Monocytes % 8.8 % (4.7-12.5); Neutrophil % 60.8 % (34.0-71.1); Platelet Count 210 x10^3/uL (182-369); Red Blood Count 3.59 x10^6/uL (3.93-5.22); Red Cell Distribution Width 12.5 % (11.7-14.4); White Blood Count 9.1 x10^3/uL (3.98-10.04)
[2025-02-03 11:39] VITALS: BP 122/87; PULSE 61; RESP 16; O2SAT 98
[2025-02-03] MEDS ORDERED: TYLENOL 325 MG ONE (11:39)
[2025-02-03] MEDS: TYLENOL 325 MG PO ONE (11:41)
[2025-02-03 11:49] LABS: MAGNESIUM 1.8 mg/dL (1.6-2.3); TROPONIN < 0.012 ng/mL (0.000-0.033)
--- NOTE | 2025-02-03 11:53 | ERPHSYRPT ---
- History of Present Illness Time Seen by Provider: 02/03/25 11:30 Source: patient, family Exam Limitations: no limitations Patient Subjective Stated Complaint: C/O chest pressure while having a low heart rate in the OB department. NO current pain or pressure. Triage Nursing Assessment: Patient brought to ER from the OB department. She is alert and oriented. No SOB. Skin tone is normal. Sinus rhythm upon arrival to ER; no current bradycardia. Physician History: This is a 29-year-old white female patient of nurse practitioner Robin and yarn polishing machine operator Dr. Conde who is approximately 34 weeks . Patient was evaluated and monitored in the OB department since approximately 11 PM last evening, 02/02/2025. Patient was having some labial swelling and her workup showed that she was significantly dehydrated. Patient states that she received approximately 2-1/2 L of crystalloid solution. Her repeat urinalysis was significantly improved and patient was feeling better. However, it was noted that the patient had periodic episodes where her heart dropped in the high 40s beat per minute range. Although she has not felt short of breath, she states that during this there were times where she felt a little chest pressure and nearly fainted. This is not happened before. She currently denies chest pain. She denies shortness of breath. Her heart rate is in the high 50s and a normal sinus rhythm pattern and her systolic blood pressures in the 120s. Her room air oxygen saturation levels 99%. Patient had blood work drawn approximately 2 hours prior to her arrival here to the emergency department. I reviewed all of her inpatient laboratory data results. She was sent to us primarily because of the periodic symptoms of fainting during her and the few episodes where her heart rate dropped into the high 40 bpm range. Timing/Duration: today Modifying Factors: Improves With: nothing Associated Symptoms: denies symptoms Allergies/Adverse Reactions: kiwi Allergy (Verified 01/15/25 15:05) lazaro Allergy (Verified 01/15/25 15:05) Sulfa (Sulfonamide Antibiotics) Allergy (Verified 01/15/25 15:05) Rash Home Medications: Famotidine 20 mg [Pepcid 20 MG] 20 mg PO BID 05/29/24 [History] Pnv No.103/Folic/Om3s/Fish Oil [ Gummies] 1 tab PO HS 10/19/24 [History] Sertraline HCl 50 mg [Zoloft 50 mg Tablet] 50 mg PO DAILY 01/15/25 [History] Hx Tetanus, Diphtheria Vaccination/Date Given: Yes Hx Influenza Vaccination/Date Given: No Hx Pneumococcal Vaccination/Date Given: No Immunizations Up to Date: Yes Travel Risk - International Travel Have you traveled outside of the country in past 3 weeks: No - Emerging Infectious Disease Are you exhibiting symptoms associated with any current EIDs: No Symptoms: Abdominal Pain - Review of Systems Constitutional: No Symptoms Eyes: No Symptoms Ears, Nose, & Throat: No Symptoms Respiratory: No Symptoms Cardiac: No Symptoms Abdominal/Gastrointestinal: No Symptoms Genitourinary Symptoms: No Symptoms Musculoskeletal: No Symptoms Skin: No Symptoms Neurological: No Symptoms Psychological: No Symptoms Endocrine: No Symptoms Hematologic/Lymphatic: No Symptoms Immunological/Allergic: No Symptoms All Other Systems: Reviewed and Negative - Past Medical History Pertinent Past Medical History: Yes Neurological History: No Pertinent History ENT History: No Pertinent History Cardiac History: No Pertinent History Respiratory History: No Pertinent History Endocrine Medical History: No Pertinent History Musculoskeletal History: No Pertinent History GI Medical History: GERD History: No Pertinent History Psycho-Social History: Anxiety, Depression Female Reproductive Disorders: No Pertinent History Other Medical History: anemia - Past Surgical History Past Surgical History: Yes Neuro Surgical History: No Pertinent History Cardiac: No Pertinent History Respiratory: No Pertinent History Gastrointestinal: Cholecystectomy Genitourinary: No Pertinent History Musculoskeletal: No Pertinent History Female Surgical History: No Pertinent History, Dilation & Curettage Other Surgical History: wisdom tooth removal , colonoscopy, egd Significant Family History: no pertinent family hx - Female History Hx Last Menstrual Period: 05/29/24 Hx Now: Yes Gestational Age: 34 weeks - Social History Smoking Status: Never smoker Exposure to second hand smoke: No Drug Use: none - Social Determinants of Health Will the patient participate in the screening: Yes Do you worry about a steady place to live?: No Do you have any problems with any of the following?: No known problems In the past 12 months,have you had to go without utilities?: No Transportation Issues: No Has anyone in your support network made you feel unsafe?: No Have you or anyone in your house had to go w/o enough food: No - Nursing Vital Signs Nursing Vital Signs: Initial Vital Signs Temperature 98.3 F 02/02/25 23:10 Pulse Rate 88 02/02/25 23:10 Respiratory Rate 18 02/02/25 23:10 O2 Sat by Pulse Oximetry 99 02/02/25 23:10 Pain Scale Pain Intensity 3 - Physical Exam General Appearance: no apparent distress, alert Eye Exam: PERRL/EOMI, eyes nml inspection Ears, Nose, Throat Exam: normal ENT inspection, moist mucous membranes Neck Exam: normal inspection, non-tender, supple, full range of motion Respiratory Exam: normal breath sounds, lungs clear, airway intact, No chest tenderness, No respiratory distress Cardiovascular Exam: regular rate/rhythm, normal heart sounds, normal peripheral pulses Gastrointestinal/Abdomen Exam: soft, normal bowel sounds, No tenderness Pelvic Exam: not done Rectal Exam: not done Back Exam: normal inspection, normal range of motion, No CVA tenderness, No vertebral tenderness Extremity Exam: normal inspection, normal range of motion, pelvis stable Neurologic Exam: alert, oriented x 3, cooperative, stage hand II-XII nml as tested, normal mood/affect, nml cerebellar function, nml station & gait, sensation nml Skin Exam: normal color, warm, dry Lymphatic Exam: No adenopathy SpO2 Interpretation: normal SpO2: 98 O2 Delivery: Room Air - Course Nursing assessment & vital signs reviewed: Yes EKG Interpreted by Me: RATE (65), Sinus Rhythm, NORMAL AXIS, NORMAL INTERVALS, NORMAL QRS, Other (No acute ischemia. QTc is 432.) Ordered Tests: Active Orders 24 hr Category Date Time Status EKG-ER Only STAT Care 02/03/25 11:26 Active IV Care Q6H Care 02/03/25 00:32 Active IV Insertion ROUTINE Care 02/03/25 00:32 Completed QT-Syj-Qzwtip Test ASORD Care 02/03/25 08:00 Active House Regular Diet Diet 02/03/25 Breakfast Active CBC W DIFF Stat Lab 02/03/25 08:02 Completed CMP Stat Lab 02/03/25 08:33 Completed CULTURE,URINE Stat Lab 02/02/25 23:58 Received MAGNESIUM Stat Lab 02/03/25 08:02 Completed TROPONIN Q4H Lab 02/03/25 08:02 Completed TROPONIN Q4H Lab 02/03/25 15:30 Ordered TROPONIN Q4H Lab 02/03/25 19:30 Ordered UA W/RFX UR CULTURE Stat Lab 02/02/25 23:58 Completed UA W/RFX UR CULTURE Stat Lab 02/03/25 08:33 Completed Urine Triage Profile Routine Lab 02/02/25 23:57 Completed Holter Monitor ONCE RT 02/03/25 12:01 Ordered Medication Summary Generic Name Dose Route Start Last Admin Trade Name Larryq PRN Reason Stop Dose Admin Lactated Ringer's 1,000 mls @ 125 mls/hr 02/03/25 01:00 02/03/25 11:17 Lactated Ringers IV 03/05/25 00:59 Not Given .Q8H JACY Ondansetron HCl 4 mg 02/03/25 01:08 02/03/25 01:21 Zofran 4 Mg/Udtablet Orally Disintegrating PO 03/05/25 01:07 4 mg Q6H PRN PRN Administration NAUSEA/VOMITING Sertraline HCl 25 mg 02/03/25 10:00 02/03/25 01:21 Sertraline Hcl 50 Mg Tab PO 03/05/25 09:59 25 mg DAILY JACY Administration Discontinued Medications Generic Name Dose Route Start Last Admin Trade Name Michael PRN Reason Stop Dose Admin Acetaminophen 650 mg 02/03/25 11:31 02/03/25 11:41 Acetaminophen 325 Mg Tablet PO 02/03/25 11:32 650 mg STAT ONE Administration Acetaminophen Confirm 02/03/25 11:39 Acetaminophen 325 Mg Tablet Administered 02/03/25 11:40 Dose 650 mg .ROUTE .STK-MED ONE Lactated Ringer's 1,000 mls @ 999 mls/hr 02/03/25 00:34 02/03/25 08:00 Lactated Ringers IV 02/03/25 01:34 999 mls/hr .Q1H1M ONE Administration Lab/Rad Data: Laboratory Result Diagrams 02/03/25 08:02 02/03/25 08:33 Laboratory Results 02/03/25 02/03/25 02/03/25 Range/Units 08:33 08:33 08:02 WBC (3.98-10.04) x10^3/uL RBC (3.93-5.22) x10^6/uL Hgb (11.2-15.7) g/dL Hct (34.1-44.9) % MCV (79.4-94.8) fL MCH (25.6-32.2) pg MCHC (32.2-35.5) g/dL RDW (11.7-14.4) % Plt Count (182-369) x10^3/uL MPV (9.4-12.3) fL Gran % (34.0-71.1) % Immature Gran % (Auto) (0.001-0.429) % Nucleat RBC Rel Count (0.00-0.2) % Eos # (Auto) (0.04-0.36) x10^3/uL Immature Gran # (Auto) (0.001-0.031) x10^3u/L Absolute Lymphs (auto) (1.18-3.74) x10^3/uL Absolute Monos (auto) (0.24-0.86) x10^3/uL Absolute Nucleated RBC (0.00-0.012) x10^3u/L Lymphocytes % (19.3-51.7) % Monocytes % (4.7-12.5) % Eosinophils % (0.7-5.8) % Basophils % (0.1-1.2) % Absolute Granulocytes (1.56-6.13) x10^3/uL Basophils # (0.01-0.08) x10^3/uL Sodium 137 (135-145) mmol/L Potassium 3.9 (3.5-5.1) mmol/L Chloride 111 H (98-107) mmol/L Carbon Dioxide 17 L (22-30) mmol/L Anion Gap 13.3 (5-15) MEQ/L BUN 7 (7-17) mg/dL Creatinine 0.55 (0.52-1.04) mg/dL Estimated GFR 128.8 ML/MIN Glucose 80 (74-106) mg/dL Calcium 8.5 (8.4-10.2) mg/dL Magnesium 1.8 (1.6-2.3) mg/dL Total Bilirubin 0.30 (0.2-1.3) mg/dL AST 22 (14-36) U/L ALT 12 (0-35) U/L Alkaline Phosphatase 105 (38-126) U/L Troponin I < 0.012 (0.000-0.033) ng/mL Serum Total Protein 5.5 L (6.3-8.2) g/dL Albumin 2.9 L (3.5-5.0) g/dL Urine Color Yellow (Yellow) Urine Appearance Clear (Clear) Urine pH 7.0 (4.6-8.0) Ur Specific [place] <=1.005 (1.005-1.030) Urine Protein Negative (Negative) Urine Glucose (UA) Negative (Negative) mg/dL Urine Ketones Trace A (Negative) Urine Blood Negative (Negative) Urine Nitrite Negative (Negative) Urine Bilirubin Negative (Negative) Urine Urobilinogen 0.2 (0.2) mg/dL Ur Leukocyte Esterase Negative (Negative) U Hyaline Cast (Auto) NONE SEEN (0-2) /LPF Urine Microscopic RBC 0-2 (0-5) /HPF Urine Microscopic WBC 0-2 (0-5) /HPF Ur Epithelial Cells None Seen (None Seen) /HPF Urine Bacteria None Seen (None Seen) /HPF Urine Culture Reflexed NO (NO) Urine Opiates Level (NEGATIVE) Ur Methadone (NEGATIVE) Urine Barbiturates (NEGATIVE) Ur Phencyclidine (PCP) (NEGATIVE) Urine Amphetamine (NEGATIVE) U Benzodiazepine Level (NEGATIVE) Urine Cocaine (NEGATIVE) Urine Marijuana (THC) (NEGATIVE) 02/03/25 02/02/25 02/02/25 Range/Units 08:02 23:58 23:57 WBC 9.1 (3.98-10.04) x10^3/uL RBC 3.59 L (3.93-5.22) x10^6/uL Hgb 9.9 L (11.2-15.7) g/dL Hct 29.8 L (34.1-44.9) % MCV 83.0 (79.4-94.8) fL MCH 27.6 (25.6-32.2) pg MCHC 33.2 (32.2-35.5) g/dL RDW 12.5 (11.7-14.4) % Plt Count 210 (182-369) x10^3/uL MPV 11.7 (9.4-12.3) fL Gran % 60.8 (34.0-71.1) % Immature Gran % (Auto) 0.2 (0.001-0.429) % Nucleat RBC Rel Count 0.0 (0.00-0.2) % Eos # (Auto) 0.09 (0.04-0.36) x10^3/uL Immature Gran # (Auto) 0.02 (0.001-0.031) x10^3u/L Absolute Lymphs (auto) 2.62 (1.18-3.74) x10^3/uL Absolute Monos (auto) 0.80 (0.24-0.86) x10^3/uL Absolute Nucleated RBC 0.00 (0.00-0.012) x10^3u/L Lymphocytes % 28.7 (19.3-51.7) % Monocytes % 8.8 (4.7-12.5) % Eosinophils % 1.0 (0.7-5.8) % Basophils % 0.5 (0.1-1.2) % Absolute Granulocytes 5.56 (1.56-6.13) x10^3/uL Basophils # 0.05 (0.01-0.08) x10^3/uL Sodium (135-145) mmol/L Potassium (3.5-5.1) mmol/L Chloride (98-107) mmol/L Carbon Dioxide (22-30) mmol/L Anion Gap (5-15) MEQ/L BUN (7-17) mg/dL Creatinine (0.52-1.04) mg/dL Estimated GFR ML/MIN Glucose (74-106) mg/dL Calcium (8.4-10.2) mg/dL Magnesium (1.6-2.3) mg/dL Total Bilirubin (0.2-1.3) mg/dL AST (14-36) U/L ALT (0-35) U/L Alkaline Phosphatase (38-126) U/L Troponin I (0.000-0.033) ng/mL Serum Total Protein (6.3-8.2) g/dL Albumin (3.5-5.0) g/dL Urine Color Dark Yellow A (Yellow) Urine Appearance Cloudy A (Clear) Urine pH 6.5 (4.6-8.0) Ur Specific [place] >=1.030 A (1.005-1.030) Urine Protein 30 (Negative) Urine Glucose (UA) Negative (Negative) mg/dL Urine Ketones >=160 A (Negative) Urine Blood Negative (Negative) Urine Nitrite Negative (Negative) Urine Bilirubin Small A (Negative) Urine Urobilinogen 1.0 A (0.2) mg/dL Ur Leukocyte Esterase Trace A (Negative) U Hyaline Cast (Auto) 3-5 A (0-2) /LPF Urine Microscopic RBC 0-2 (0-5) /HPF Urine Microscopic WBC 6-10 A (0-5) /HPF Ur Epithelial Cells Many A (None Seen) /HPF Urine Bacteria None Seen (None Seen) /HPF Urine Culture Reflexed YES (NO) Urine Opiates Level NEGATIVE (NEGATIVE) Ur Methadone NEGATIVE (NEGATIVE) Urine Barbiturates NEGATIVE (NEGATIVE) Ur Phencyclidine (PCP) NEGATIVE (NEGATIVE) Urine Amphetamine NEGATIVE (NEGATIVE) U Benzodiazepine Level NEGATIVE (NEGATIVE) Urine Cocaine NEGATIVE (NEGATIVE) Urine Marijuana (THC) NEGATIVE (NEGATIVE) - Progress Progress: improved, re-examined Progress Note: 02/03/25 11:56 My medical decision making and the assignment of low complexity to this patient's medical issue today is based on review of the patient's past medical history, review the patient's medication list, review patient drug allergy list, history present illness and physical findings on examination. The workup in this patient includes twelve-lead EKG, magnesium level and troponin level. We will also have respiratory therapy apply a Holter monitor which she will wear for 48 hours. Differential diagnosis includes but is not limited to myocardial infarction, arrhythmia, electrolyte abnormalities I interpreted the patient's laboratory data results that were performed earlier today, 02/03/2025, while the patient was inpatient on the OB floor. There were no acute, emergent findings on the CMP or the repeat urinalysis after rehydration. 02/03/25 12:01 I interpreted the magnesium level and troponin level. They are normal. I spoke with the patient's yarn polishing machine operator, Dr. Conde. I updated him on the patient workup and results. Patient is stable for discharge Counseled pt/family regarding: lab results, diagnosis, need for follow-up Medical Desision Making - Independent Historian Additional History obtained from: Spouse - Diagnostic Testing Diagnostic test were ordered, analyzed, and reviewed by me: Yes - Risk of complications Low Risk: Low risk of morbidity from additional dx testing or treatment - Departure Departure Disposition: Home Clinical Impression: Bradycardia, Sensation of chest pressure, Fainting episodes Condition: Stable Critical Care Time: No Referrals: LAURENT AKBAR NP [Primary Care Provider, [facility]ILY PRACTICE] Additional Instructions: keep your regularly scheduled appointment with Dr Conde. You will be seen today in the Emergency Department also for complaints of chest heaviness and low heart rate. Forms: OB Outpatient Discharge Inst.
== END 2025-02-03 12:35 | disposition home or self-care (01) ==
LOC: EDSTATUS 10:56 → ED 10:56
DX: O99.891 Other specified diseases and conditions complicating pregnancy (principal); R00.1 Bradycardia, unspecified; R07.9 Chest pain, unspecified; R55 Syncope and collapse; R22.9 Localized swelling, mass and lump, unspecified; Z3A.34 34 weeks gestation of pregnancy; Z79.899 Other long term (current) drug therapy
CPT/HCPCS: 36415; 80053; 80307; 81001; 83735; 84484; 85025; 87086; 93005; 93041; 93225; 96360; 99284; G0378; G0379; Q0162; A9270-GY

== ENCOUNTER 2025-02-12 11:34 | Observation (INO) | payer OTHER ==
[2025-02-12 12:02] VITALS: PULSE 57; RESP 18
[2025-02-12 12:35] LABS: Appearance Clear (Clear); Bacteria Few /HPF (None Seen); Bilirubin Negative (Negative); Blood Negative (Negative); Epithelial Cells Moderate /HPF (None Seen); Glucose, Urine Negative (Negative); Hyaline Casts NONE SEEN /LPF (0-2); Ketones Trace (Negative); Leukocyte Esterase Moderate (Negative); Nitrite Negative (Negative); Ph 6.5 (4.6-8.0); Protein,Urine Dip Trace (Negative); RBC 0-2 /HPF (0-5)
[2025-02-12 13:14] LABS: Absolute Neutrophil Ct (ANC) 8.01 x10^3/uL (1.56-6.13); BASOPHIL % 0.8 % (0.1-1.2); Basophil (Absolute #) 0.09 x10^3/uL (0.01-0.08); Eosinophil % 1.6 % (0.7-5.8); Eosinophil (Absolute #) 0.18 x10^3/uL (0.04-0.36); Hematocrit 33.5 % (34.1-44.9); IMMATURE GRAN # 0.03 x10^3u/L (0.001-0.031); IMMATURE GRAN % 0.3 % (0.001-0.429); Lymphocyte (Absolute #) 2.26 x10^3/uL (1.18-3.74); Lymphocytes % 19.8 % (19.3-51.7); Mean Cell Volume 83.3 fL (79.4-94.8); Mean Corpuscular Hemoglobin 27.4 pg (25.6-32.2); Mean Corpuscular Hgb Concent. 32.8 g/dL (32.2-35.5); Monocyte (Absolute #) 0.84 x10^3/uL (0.24-0.86); Monocytes % 7.4 % (4.7-12.5); Neutrophil % 70.1 % (34.0-71.1); Platelet Count 193 x10^3/uL (182-369); Red Blood Count 4.02 x10^6/uL (3.93-5.22); Red Cell Distribution Width 12.5 % (11.7-14.4); White Blood Count 11.4 x10^3/uL (3.98-10.04)
[2025-02-12 13:26] LABS: ALBUMIN 3.3 g/dL (3.5-5.0); ANION GAP 10.4 MEQ/L (5-15); BILIRUBIN,TOTAL 0.3 mg/dL (0.2-1.3); Calcium 8.9 mg/dL (8.4-10.2); Creatinine 1 0.63 mg/dL (0.52-1.04); EST GLOMERULAR FILTRATION RATE 124.6 ML/MIN; Potassium 3.9 mmol/L (3.5-5.1); Total Protein 6.2 g/dL (6.3-8.2)
[2025-02-12 13:34] LABS: Creatinine, Urine Random 204.1 mg/dl; Protein Creatinine Ratio, Ran. 0.16 mg/mg (0.0-0.15)
[2025-02-12] MEDS: Trandate 100 MG PO SCH (14:19)
[2025-02-12 15:36] VITALS: BP 153/97
== END 2025-02-12 14:45 | disposition home or self-care (01) ==
LOC: OB.NST 11:34 → OB 12:45
PROVIDERS: ADMIT Obstetrics & Gynecology; ATTEND Obstetrics & Gynecology
DX: Z34.83 Encounter for supervision of other normal pregnancy, third trimester (principal); Z3A.35 35 weeks gestation of pregnancy
CPT/HCPCS: 36415; 59025; 80053; 81001; 82570; 83615; 84156; 84550; 85025; 87086; 99213; G0378; A9270-GY

== ENCOUNTER 2025-06-23 12:53 | Day surgery (SDC) | payer MEDICAID ==
[2025-06-23] MEDS ORDERED: BUPIVACAINE 0.5% VIAL IJ ONE (12:54)
[2025-06-23 14:10] LABS: HCG URINE TEST NEGATIVE (NEGATIVE)
[2025-06-23] MEDS ORDERED: propofoL IV ONE (15:38)
--- NOTE | 2025-06-23 16:50 | XRAY ---
Indication: Bilateral L4-S1 MBB. Intraoperative fluoroscopy provided for 11 seconds. Single digital spot image submitted for interpretation demonstrates posterior needle tips projecting over expected left and right L4-S1 nerve roots. Correlate with intraoperative findings/report.
[2025-06-23] MEDS ORDERED: Lactated Ringers 1,000 ML IV ONE (17:54)
--- NOTE | 2025-06-23 19:12 | XRAY ---
11 seconds of fluoroscopy were used in surgery for a bilateral L4-S1 MBB.
== END 2025-06-23 16:05 | disposition home or self-care (01) ==
LOC: SDC-PAIN 12:53
PROVIDERS: ATTEND Psychiatry & Neurology Pain Medicine
DX: M47.817 Spondylosis without myelopathy or radiculopathy, lumbosacral region (principal)

== ENCOUNTER 2025-07-14 13:55 | Day surgery (SDC) | payer MEDICAID ==
[2025-07-14] MEDS ORDERED: methylPREDNISolone acetate IM ONE (13:56)
[2025-07-14] MEDS ORDERED: LIDOCAINE HCL 1% 50 MG/5 ML VL IJ ONE (13:56)
[2025-07-14] MEDS ORDERED: BUPIVACAINE 0.5% VIAL IJ ONE (13:56)
[2025-07-14 15:06] LABS: HCG URINE TEST NEGATIVE (NEGATIVE)
[2025-07-14] MEDS ORDERED: propofoL IV ONE (16:47)
[2025-07-14] MEDS ORDERED: Lactated Ringers 1,000 ML IV ONE (17:26)
--- NOTE | 2025-07-14 20:29 | XRAY ---
Indication: Right L4-S1 RFA. Intraoperative fluoroscopy provided for 18 seconds. 3 digital spot image submitted for interpretation demonstrates posterior needle tips projecting over expected right L4-S1 nerve roots. Correlate with intraoperative findings/repor
--- NOTE | 2025-07-14 20:37 | XRAY ---
18 seconds of fluoroscopy were used in surgery for a right L4-S1 RFA.
== END 2025-07-14 17:22 | disposition home or self-care (01) ==
LOC: SDC-PAIN 13:55
PROVIDERS: ATTEND Psychiatry & Neurology Pain Medicine
DX: M47.817 Spondylosis without myelopathy or radiculopathy, lumbosacral region (principal)